=== PATIENT | female | born 1995 | race Caucasian/White ===

== ENCOUNTER → 2018-05-31 | Outpatient (CLI) | payer OTHER ==
--- NOTE | 2018-05-31 14:19 | US ---
EXAMINATION TYPE: Transabdominal DATE OF EXAM: 01/12/18 COMPARISON: NONE CLINICAL HISTORY: Z34.80 Encounter for supervision of other.... Confirm dates, 4, para 3 EXAM PERFORMED: Transabdominal (TA) EXAM MEASUREMENTS: GESTATIONAL AGE / DATING Physician Established: Not established yet Dates by LMP: (7 weeks/5 days) EDC: 01/12/2019 Dates by First Scan: This is 1st scan Dates by Current Scan for: ( 8 weeks/1 days) EDC: 01/09/2019 MATERNAL ANATOMY Uterus: 9.6 x 6.5 x 7.4cm, anteverted Right Ovary: 3.2 x 2.2 x 2.4cm Left Ovary: 2.9 x 1.5 x 2.2cm Post CDS / Adnexa: wnl Presence of free fluid: no Presence of corpus luteal cyst: right ovary: 1.7 x 1.4 x 1.2cm complex area, possible corpus luteum Presence of subchorionic bleed: no GESTATION / SURVEY CRL: 1.7cm (8 weeks/1 days) Yolk Sac (normal less than 6mm): 3.4mm Heart Rate: 175 bpm Rhythm: Normal IUP: Viable IUP Date of LMP: 04/07/2018 Single live intrauterine gestation is seen as gestational sac, yolk sac, and pole are identifie d. No free fluid is seen in pelvic cul-de-sac. Both ovaries are seen. Within right ovary there is 1.7 cm oval slightly lobulated solid and cystic le mila felt to reflect corpus luteal cyst. IMPRESSION: Single live intrauterine gestation is confirmed, mean crown-rump length is 1.7 cm corresponding to 8 week 1 day old fetus.
== END | disposition home or self-care (01) ==
LOC: RADUSWWP 13:30
PROVIDERS: ATTEND Obstetrics & Gynecology
DX: Z34.81 Encounter for supervision of other normal pregnancy, first trimester (principal)
CPT/HCPCS: 76801

== ENCOUNTER → 2018-08-12 | Outpatient (CLI) | payer OTHER ==
--- NOTE | 2018-08-12 15:39 | US ---
EXAMINATION TYPE: US OB anatomy transabd DATE OF EXAM: 08/12/2018 COMPARISON: NONE HISTORY: Z34.80 SUPERVISION OF OTHER NORMAL TECHNIQUE: Transabdominal (TA) EXAM MEASUREMENTS: GESTATIONAL AGE / DATING Physician Established: (18 weeks/1 days) EDC: 01/12/2019 Dates by LMP: (18 weeks/1 days) EDC: 01/12/2019 Dates by First Scan: (18 weeks/4 days) EDC: 01/09/2019 Dates by Current Scan for: (18 weeks/1 days) EDC: 01/12/2019 SURVEY IUP: Single PLACENTA: Anterior PREVIA: No previa CLARY: 11.9 cm Normal CERVICAL LENGTH (transabdominal: norm > 3.0cm): 4.2 cm BIOMETRY PRESENTATION: Vertex LIE: Longitudinal BPD: 3.9 cm 17 weeks / 6 days HC: 15.3 cm 18 weeks / 2 days AC: 13.0 cm 18 weeks / 4 days FL: 2.7 cm 18 weeks / 3 days ESTIMATED WEIGHT IN GRAMS: 238.87 grams ESTIMATED WEIGHT IN LBS/OZ: 0 lbs. 8 oz. WEIGHT PERCENTAGE BASED ON ESTABLISHED DATE: 35.9 % HC/AC: 1.18 Normal FL/AC: 21.15 HEART RATE: 170 bpm RHYTHM: Normal ANATOMY SEEN (within normal limits): * Lateral Vent (< 1 cm) 0.8 cm * Cisterna Magna (< 1.1 cm) 0.4 cm * Nuchal Fold (< 0.6 cm) 0.2 cm * Cerebellum (varies with age) 1.9 cm Choroid Plexus (bilateral) Midline Falx Cavus Septi Pellucidi Four Chamber Heart Outflow tracts: LVOT/RVOT Stomach Situs Nose / Lips not seen Diaphragm Kidneys (bilateral) Bladder Cord Insert Three Vessel Cord Longitudinal Spine Transverse Spine Arms (bilateral) Legs (bilateral) Viable IUP, measurements consistent with dates. IMPRESSION: Single viable intrauterine corresponding to ultrasound age of 18 weeks 1 day with estimated date of delivery 01/12/2019, limitations above.
== END ==
LOC: RADUSWWP 12:58
PROVIDERS: ATTEND Obstetrics & Gynecology
DX: Z34.80 Encounter for supervision of other normal pregnancy, unspecified trimester (principal); Z3A.18 18 weeks gestation of pregnancy
CPT/HCPCS: 76811

== ENCOUNTER 2018-10-05 19:52 | Emergency (ER) | payer OTHER ==
[2018-10-05] MEDS ORDERED: ACETAMINOPHEN TAB 325 MG TAB PO STA (21:42)
[2018-10-05 21:45] LABS: Appearance,Urine Clear (Clear); Bilirubin,Urine Negative (Negative); Blood,Urine Negative (Negative); Color,Urine Yellow; Glucose,Urine (UA) Negative (Negative); Ketones,Urine Negative (Negative); Leukocyte Esterase,Urine Small (Negative); Mucus,Urine Moderate /hpf; Nitrite,Urine Negative (Negative); PH, Urine 6.5 (5.0-8.0); Protein,Urine Negative (Negative); Specific Gravity,Urine 1.019 (1.001-1.035); Squamous Epithelial Cell,Urine 5 /hpf (0-4); Urobilinogen,Urine <2.0 mg/dL (<2.0)
--- NOTE | 2018-10-05 22:23 | ED ---
General Adult HPI - General Chief complaint: Upper Respiratory Infection Stated complaint: Congestion/coughing Source: patient, RN notes reviewed, old records reviewed Mode of arrival: ambulatory Limitations: no limitations - History of Present Illness Initial comments: 23-year-old female patient past medical history including 26 weeks gestation presents to ED with 3 days of mild nonproductive cough, rhinitis, sinus congestion. Patient also has complaint of 2 weeks of mild lumbar back pain without fall or injury. Patient denies other complaints. Patient denies vaginal pain, suprapubic pain, vaginal bleeding, abdominal pain. Patient denies chest pain, shortness of breath, hemoptysis. Systemic: Pt denies fatigue, myalgia, fever/chills, rash. Pt denies weakness, night sweats, weight loss. Neuro: Pt denies headache, visual disturbances, syncope or pre-syncope. HEENT: Pt denies ocular discharge or irritation, otalgia, pharyngitis or notable lymphadenopathy. Cardiopulmonary: Pt denies chest pain, SOB, heart palpitations, dyspnea on exertion. Abdominal/GI: Pt denies abdominal pain, n/v/d. : Pt denies dysuria, burning w/ urination, frequency/urgency. Denies new onset urinary or bowel incontinence. MSK: Pt denies myalgia, loss of strength or function in extremities. Neuro: Pt denies new onset weakness, paresthesias. - Related Data Previous Rx's Medication Instructions Recorded Acetaminophen Tab [Tylenol Tab] 500 mg PO Q6H #30 tablet 10/05/18 Albuterol Nebulized [Ventolin 2.5 mg INHALATION Q4H PRN 10 Days 10/05/18 Nebulized] nebu Allergies Allergy/AdvReac Type Severity Reaction Status Date / Time No Known Allergies Allergy Verified 10/05/18 20:08 Review of Systems ROS Statement: Those systems with pertinent positive or pertinent negative responses have been documented in the HPI. ROS Other: All systems not noted in ROS Statement are negative. Past Medical History Past Medical History: No Reported History History of Any Multi-Drug Resistant Organisms: None Reported Additional Past Surgical History / Comment(s): left ACL repair. eustachian tubes. Past Psychological History: No Psychological Hx Reported Smoking Status: Current every day smoker Past Alcohol Use History: None Reported Past Drug Use History: None Reported General Exam - General Exam Comments Initial Comments: Constitutional: NAD, AOX3, Pt has pleasant affect. HEENT: NC/AT, trachea midline, neck supple, no lymphadenopathy. Posterior pharynx non erythematous, without exudates. External ears appear normal, without discharge. Tympanic membrane pale ellis bilaterally, no effusion, bulging, perforation. Mucous membranes moist. Eyes PERRLA, EOM intact. There is no scleral icterus. No pallor noted. Cardiopulmonary: RRR, no murmurs, rubs or gallops, no JVD noted. Lungs CTAB in anterior and posterior blankenship. No peripheral edema. Abdominal exam: Abdomen soft and non-distended. Abdomen non-tender to palpation in all 4 quadrants. Bowel sounds active in LLQ. No hepatosplenomegaly. No ecchymosis Neuro: CN II-XII grossly intact. No nuchal rigidity. MSK: Patient has mild lumbar back pain with flexion movements. Patient states this is the pain that she is experiencing. Patient has no midline cervical, thoracic, lumbar back tenderness. Patient has no para cervical, thoracic and lumbar back tenderness. No posterior calf tenderness bilaterally, homans sign negative bilaterally. Posterior tibialis and radial pulse +2 bilaterally. Sensation intact in upper and lower extremities. Full active ROM in upper and lower extremities, 5/5 strength. Limitations: no limitations Course Vital Signs 10/05/18 10/05/18 10/05/18 20:06 21:45 23:14 Temperature 98.5 F 97.9 F Pulse Rate 107 H 72 90 Respiratory 20 18 Rate Blood Pressure 100/57 102/58 O2 Sat by Pulse 98 98 Oximetry Medical Decision Making - Medical Decision Making 23-year-old female patient past medical history including 26 weeks gestation presents to ED with 3 days of mild nonproductive cough, rhinitis, sinus congestion. Patient also has complaint of 2 weeks of mild lumbar back pain without fall or injury. Patient denies other complaints. Physical exam didn't display acute pathology. Offered patient chest x-ray, explained to patient small amount of radiation exposure to developing fetus. Patient states that she would like to decline chest x-ray and continue further watchful waiting. Discussed with patient that due to timeframe of symptoms, lack of physical exam findings, stable vital signs is likely that she was dealing with a viral upper respiratory infection. Patient to follow up with PCP and SENIOR QUALITY METHODS SPECIALIST for continued evaluation of symptoms as well as back pain. Patient verbalizes understanding and agreement with plan. Patient requested albuterol refill for child not in ED that has asthma, albuterol was refilled for patient. Patient requested refill of Tylenol for her back pain, Tylenol as refilled. Patient to return to ED if any new signs or symptoms develop or if condition worsens. Patient to continue supportive treatment at home. Pt will f/u with PCP and ob/ bark fitter in 1-2 days. Case discussed with Dr. Carreno. - Lab Data Lab Results 10/05/18 Range/Units 21:25 Urine Color Yellow Urine Appearance Clear (Clear) Urine pH 6.5 (5.0-8.0) Ur Specific [place] 1.019 (1.001-1.035) Urine Protein Negative (Negative) Urine Glucose (UA) Negative (Negative) Urine Ketones Negative (Negative) Urine Blood Negative (Negative) Urine Nitrite Negative (Negative) Urine Bilirubin Negative (Negative) Urine Urobilinogen <2.0 (<2.0) mg/dL Ur Leukocyte Esterase Small H (Negative) Urine WBC 1 (0-5) /hpf Ur Squamous Epith Cells 5 H (0-4) /hpf Urine Mucus Moderate H (None) /hpf Disposition Clinical Impression: Upper respiratory infection Disposition: HOME SELF-CARE Condition: Good Instructions: Upper Respiratory Infection (ED) Additional Instructions: Patient to adhere to previously discussed treatment plan and will take medication(s) as directed. Patient to follow up with PCP in 1-2 days. Patient to return to ED if symptoms do not improve. Prescriptions: Acetaminophen Tab [Tylenol Tab] 500 mg PO Q6H #30 tablet Albuterol Nebulized [Ventolin Nebulized] 2.5 mg INHALATION Q4H PRN 10 Days nebu PRN Reason: Cough Is patient prescribed a controlled substance at d/c from ED?: No Referrals: None,Stated [Primary Care Provider] - 1-2 days Time of Disposition: 22:52
[2018-10-05 23:15] VITALS: BP 102/58; PULSE 90; RESP 18; TEMP 97.9
== END 2018-10-05 23:05 | disposition home or self-care (01) ==
LOC: EC 19:52
DX: O99.512 Diseases of the respiratory system complicating pregnancy, second trimester (principal); J06.9 Acute upper respiratory infection, unspecified; O99.89 Other specified diseases and conditions complicating pregnancy, childbirth and the puerperium; M54.5 Low back pain; O99.332 Smoking (tobacco) complicating pregnancy, second trimester; F17.200 Nicotine dependence, unspecified, uncomplicated; Z3A.26 26 weeks gestation of pregnancy
CPT/HCPCS: 81001; 99284

== ENCOUNTER → 2018-12-01 | Outpatient (CLI) | payer OTHER ==
[2018-12-01 12:12] LABS: Glucose 3 Hour, Gest 106 mg/dL
== END ==
LOC: LABWHC1 08:01
PROVIDERS: ATTEND Obstetrics & Gynecology
DX: O99.810 Abnormal glucose complicating pregnancy (principal); Z3A.00 Weeks of gestation of pregnancy not specified
CPT/HCPCS: 36415; 82951; 82952

== ENCOUNTER 2018-12-24 19:07 | Outpatient (CLI) | payer OTHER ==
[2018-12-24 19:47] LABS: Glucose,Whole Blood 90 mg/dL (75-99)
[2018-12-24 20:41] VITALS: BP 117/68; PULSE 100; RESP 16; TEMP 97.5
--- NOTE | 2018-12-25 07:45 | P.MSEPDOC ---
Presenting Problems - Arrival Data Date of Arrival on Unit: 12/24/18 Time of Arrival on Unit: 19:07 Mode of Transport: Wheelchair - Complaint OB-Reason for Admission/Chief Complaint: Possible Onset of Labor Medical History - Information : 4 Para: 3 Term: 3 : 0 Abortions: Spontaneous or Elective: 0 Number of Living Children: 3 - Gestational Age Gestational Age by NICOLE (wks/days): 37 Weeks and 6 Days - History Complications: GDM, Smoker Review of Systems - Review of Systems Constitutional: No problems Breast: No problems ENT: No problems Cardiovascular: No problems Respiratory: No problems Gastrointestinal: No problems Genitourinary: No problems Musculoskeletal: No problems Neurological: No problems Skin: No problems Vital Signs - Temperature Temperature: 97.5 F Temperature Source: Temporal Artery Scan - Pulse Right Brachial Pulse Rate: 100 Pulse Assessment Method: Automatic Cuff - Respirations Respiratory Rate: 16 Oxygen Delivery Method: Room Air O2 Sat by Pulse Oximetry: 98 - Blood Pressure Right Arm Blood Pressure: 117/68 Blood Pressure Mean: 84 Blood Pressure Source: Automatic Cuff Medical Screen Scoring (Pre) - Cervical Exam Dilation: 1-3 cm = 1 Membranes: Intact - Uterine Contractions Frequency: > 5 minutes apart = 1 Duration: N/A Intensity: N/A - Maternal Vital Signs Maternal Temperature: N/A Maternal Blood Pressure: N/A Signs of Preeclampsia: N/A - Pain Assessment Pain Location and Character: Lower, Back, Abdomen Pain Scale Used: Numeric (1 - 10) Pain Intensity: 6 Pain Description: *Acute, Cramping Pain Frequency: Intermittent Pain Duration Units: Minutes Pain Behavior: Facial Grimacing, Vocalization Pain Aggravating Factors: Contractions - Assessment Baseline FHR: 130 Heart Rate - NICHD Category: Category I (Normal) = 0 NST: Reactive Position: N/A Station: N/A - Total Score Total Score (Pre): 2 - Level of Risk Level of Risk: Low (0-5) Physician Notification (Pre) - Physician Notified Physician Notified Date: 12/24/18 Physician Notified Time: 20:25 Physician/Practitioner Notifed:: Dr. Branham Spoke With: Dr. Branham New Order Received: Yes - Notification Comment Comment: Dr. Branham called and given report on pt in tr. Pt c/o. VS WNL. Vag exam of 250/-3 with no change after 1 hr. Reactive nst. Fht with baseline of 130 with few variables noted. Orders recieved to d/c pt to home. To instruct pt to follow up with her DRMynor Disposition - Disposition OB Disposition: Discharge to home Discharge Date: 12/24/18 Discharge Time: 20:35 I agree with the RN Medical Screening Exam: Yes Risk & Benefit of care provided described in d/c instruction: Yes Diagnosis: FALSE LABOR AT OR AFTER 37 COMPLETED WEEKS OF GESTATION (Patient presented to labor and delivery with complaints of contractions and rule out labor. Patient's care has been elsewhere complicated apparently by gestational diabetes. Patient's heart tones were category 1 and after serial exams she was found not to be in labor. Patient was strongly encouraged to follow up with her marine diesel mechanic who is been managing her care thus far and she was informed that that marine diesel mechanic did not have privileges at this hospital therefore would be in her best interest to present to that hospital had she felt that she was in labor, however she was always welcome here course.)
== END 2018-12-24 20:35 | disposition home or self-care (01) ==
LOC: FBPOP 19:07
PROVIDERS: ATTEND Obstetrics & Gynecology
DX: O47.1 False labor at or after 37 completed weeks of gestation (principal); Z3A.37 37 weeks gestation of pregnancy
CPT/HCPCS: 59025; G0463; 99213

== ENCOUNTER 2019-09-23 15:07 | Emergency (ER) | payer OTHER ==
[2019-09-23 15:14] VITALS: BP 102/59; PULSE 70; RESP 16; TEMP 98.4
--- NOTE | 2019-09-23 16:11 | ED ---
URI HPI - General Chief Complaint: Upper Respiratory Infection Stated Complaint: Cough Time Seen by Provider: 09/23/19 15:18 Source: patient Mode of arrival: ambulatory Limitations: no limitations - History of Present Illness Initial Comments: Patient is a 24-year-old female presenting to emergency Department with complaints of a cough and intermittent fevers for about a week. Patient states she was seen in the ER a week ago for same complaint and they told her it was most likely viral at that time. Patient states her symptoms have been getting worse. Patient also complaining of nasal discharge and drainage as well as a sore throat. Patient has tried [id number] remedies without relief. Patient states her daughters are also sick with same sort of symptoms. Patient denies chest pain, shortness of breath, nausea, vomiting, abdominal pain. Patient has no other complaints at this time. Upon arrival to the ER, her vital signs are stable. - Related Data Previous Rx's Medication Instructions Recorded Acetaminophen Tab [Tylenol Tab] 500 mg PO Q6H #30 tablet 10/05/18 Albuterol Nebulized [Ventolin 2.5 mg INHALATION Q4H PRN 10 Days 10/05/18 Nebulized] nebu Albuterol Nebulized [Ventolin 2.5 mg INHALATION Q4H PRN #25 nebu 09/23/19 Nebulized] Azithromycin [Zithromax Z-pack] 0 mg PO DIRECTED #1 pack 09/23/19 Allergies Allergy/AdvReac Type Severity Reaction Status Date / Time Penicillins Allergy Unknown Verified 09/23/19 15:12 Childhood Review of Systems ROS Statement: Those systems with pertinent positive or pertinent negative responses have been documented in the HPI. ROS Other: All systems not noted in ROS Statement are negative. Past Medical History Past Medical History: No Reported History History of Any Multi-Drug Resistant Organisms: None Reported Additional Past Surgical History / Comment(s): left ACL repair. eustachian tubes. Past Psychological History: No Psychological Hx Reported Smoking Status: Current every day smoker Past Alcohol Use History: None Reported Past Drug Use History: None Reported General Exam - General Exam Comments Initial Comments: GENERAL: Well-appearing, well-nourished and in no acute distress. HEAD: Atraumatic, normocephalic. EYES: Pupils equal round and reactive to light, extraocular movements intact, sclera anicteric, conjunctiva are normal. ENT: TMs normal, nares patent, oropharynx clear without exudates. Moist mucous membranes. NECK: Normal range of motion, supple without lymphadenopathy or JVD. LUNGS: Breath sounds clear to auscultation bilaterally and equal. No wheezes rales or rhonchi. HEART: Regular rate and rhythm without murmurs, rubs or gallops. ABDOMEN: Soft, nontender, normoactive bowel sounds. No guarding, no rebound. No masses appreciated. : Deferred EXTREMITIES: Normal range of motion, no pitting or edema. No clubbing or cyanosis. NEUROLOGICAL: Normal speech, normal gait. SKIN: Warm, Dry, normal turgor, no rashes or lesions noted. Limitations: no limitations Course Vital Signs 09/23/19 15:10 Temperature 98.4 F Pulse Rate 70 Respiratory 16 Rate Blood Pressure 102/59 O2 Sat by Pulse 95 Oximetry Medical Decision Making - Medical Decision Making She is a 24-year-old female presenting with cough and intermittent fevers times one week. Vital signs are stable upon arrival. Exam is unremarkable. Patient was overly adamant about getting an antibiotic because she was here a week ago for same complaint and she is getting worse. Patient will be given prescription for Z-Caesar for upper respiratory infection. Patient is agreement with this plan of care. Patient is stable for discharge at this time. Patient will follow-up with PCP as symptoms persist. Disposition Clinical Impression: Upper respiratory tract infection Disposition: HOME SELF-CARE Condition: Stable Instructions (If sedation given, give patient instructions): Upper Respiratory Infection (ED) Additional Instructions: Please return to the Emergency Department if symptoms worsen or any other concerns. Take anabolic as prescribed. Follow up with PCP if symptoms persist Prescriptions: Albuterol Nebulized [Ventolin Nebulized] 2.5 mg INHALATION Q4H PRN #25 nebu PRN Reason: difficulty in breathing Azithromycin [Zithromax Z-pack] 0 mg PO DIRECTED #1 pack Is patient prescribed a controlled substance at d/c from ED?: No Referrals: Venkat Nguyen MD [Primary Care Provider] - 1-2 days
== END 2019-09-23 16:38 | disposition home or self-care (01) ==
LOC: EC 15:07
DX: J06.9 Acute upper respiratory infection, unspecified (principal); F17.200 Nicotine dependence, unspecified, uncomplicated; Z88.0 Allergy status to penicillin
CPT/HCPCS: 99283

== ENCOUNTER → 2020-06-12 | Outpatient (CLI) | payer OTHER ==
--- NOTE | 2020-06-12 15:14 | US ---
EXAMINATION TYPE: Transabdominal DATE OF EXAM: 06/12/2020 2:32 PM COMPARISON: None. CLINICAL HISTORY: Z36 confirm dates. early ob. Positive beta-hCG test. EXAM PERFORMED: OBTA EXAM MEASUREMENTS: GESTATIONAL AGE / DATING Physician Established: Not yet established Dates by LMP: (11 weeks/1 days) EDC: 01/01/2021 Dates by First Scan: No previous this is first scan Dates by Current Scan for: (11 weeks/1 days) EDC: 12/31/2020 MATERNAL ANATOMY Uterus: 11.4 x 7.9 x 9.0cm Right Ovary: not seen Left Ovary: not seen Post CDS / Adnexa: wnl Presence of free fluid: no Presence of corpus luteal cyst: not seen Presence of subchorionic bleed: no GESTATION / SURVEY CRL: 4.0 (11 weeks/0 days) MSD: wnl Yolk Sac (normal less than 6mm): not seen Heart Rate: 167 bpm Rhythm: Normal IUP: Viable IUP Date of LMP: 03/26/2020 Single live intrauterine gestation is confirmed as gestational sac and pole are seen. Yolk sac is not clearly identified. No free fluid in pelvic cul-de-sac. Neither ovary is identified. No suspicious adnexal masses are noted. IMPRESSION: Confirmation of single live intrauterine gestation, mean crown-rump length is 4.0 cm michael esponding to 11 weeks 0 day old fetus.
== END | disposition home or self-care (01) ==
LOC: RADUSWWP 14:12
PROVIDERS: ATTEND Obstetrics & Gynecology
DX: Z36.9 Encounter for antenatal screening, unspecified (principal); Z3A.11 11 weeks gestation of pregnancy
CPT/HCPCS: 76801

== ENCOUNTER 2020-08-29 11:26 | Emergency (ER) | payer OTHER ==
[2020-08-29 11:31] VITALS: PULSE 72; RESP 18; TEMP 98.4
--- NOTE | 2020-08-29 12:25 | ED ---
URI HPI - General Chief Complaint: Upper Respiratory Infection Stated Complaint: cough/congestion/headache Time Seen by Provider: 08/29/20 11:32 Source: patient Mode of arrival: ambulatory Limitations: no limitations - History of Present Illness Initial Comments: 25-year-old female who is currently 23 weeks presenting to the ER for cough congestion on and off headaches. Mother states there are 2 daughters are sick she states she's been exposed to people that have been ill with same symptoms. She denies any vomiting diarrhea vaginal bleeding of bowel pain neck stiffness. Denies chest pain or SOB. She states she just wanted comfort Covid testing she has no additional complaints upon arrival she appears well nontoxic in no acute distress - Related Data Previous Rx's Medication Instructions Recorded Acetaminophen Tab [Tylenol Tab] 500 mg PO Q6H #30 tablet 10/05/18 Albuterol Nebulized [Ventolin 2.5 mg INHALATION Q4H PRN 10 Days 10/05/18 Nebulized] nebu Albuterol Nebulized [Ventolin 2.5 mg INHALATION Q4H PRN #25 nebu 09/23/19 Nebulized] Azithromycin [Zithromax Z-pack (6 0 mg PO DIRECTED #1 pack 09/23/19 tabs)] Allergies Allergy/AdvReac Type Severity Reaction Status Date / Time Penicillins Allergy Unknown Verified 08/29/20 11:28 Childhood Review of Systems ROS Statement: Those systems with pertinent positive or pertinent negative responses have been documented in the HPI. ROS Other: All systems not noted in ROS Statement are negative. Past Medical History Past Medical History: No Reported History History of Any Multi-Drug Resistant Organisms: None Reported Additional Past Surgical History / Comment(s): left ACL repair. eustachian tubes. Past Psychological History: No Psychological Hx Reported Smoking Status: Current every day smoker Past Alcohol Use History: None Reported Past Drug Use History: None Reported General Exam - General Exam Comments Initial Comments: General: The patient is awake and alert, in no distress, and does not appear acutely ill. Eye: +3 mm pupils are equal, round and reactive to light, extra-ocular movements are intact. No nystagmus. There is normal conjunctiva bilaterally. No signs of icterus. No photophobia Ears, nose, mouth and throat: There are moist mucous membranes and no oral lesions. Oropharynx was not erythematous there is no tonsillar enlargement exudates or lesions. Uvula midline. Tympanic membranes are not erythematous or is no effusions bulging or retraction. No tenderness to palpation of the mastoid. No anterior cervical lymphadenopathy. Rhinorrhea, clear and bilateral nares. No tripoding, no drooling. Neck: The neck is supple, there is no tenderness or JVD. No nuchal rigidity negative Brudzinski and Kernig Cardiovascular: There is a regular rate and rhythm. No murmur, rub or gallop is appreciated. Respiratory: Lungs are clear to auscultation, respirations are non-labored, breath sounds are equal. No wheezes, stridor, rales, or rhonchi. No retractions or abdominal breathing. Gastrointestinal: Soft, non-distended, non-tender abdomen without masses or organomegaly noted. There is no rebound or guarding present. Bowel sounds are unremarkable. Musculoskeletal: Normal ROM, no tenderness. Strength 5/5. Sensation intact. Radial pulses equal bilaterally 2+. Neurological: A&O x 3. CN II-XII intact, There are no obvious motor or sensory deficits. Coordination appears grossly intact. Speech appears normal, no muffling. Skin: Skin is warm and dry and no rashes or lesions are noted. No extremity edema Psychiatric: Cooperative Limitations: no limitations Course Vital Signs 08/29/20 08/29/20 08/29/20 11:28 13:00 13:05 Temperature 98.4 F 98.4 F Pulse Rate 72 72 Respiratory 18 18 18 Rate O2 Sat by Pulse 97 97 Oximetry Medical Decision Making - Medical Decision Making Refused CXR. Lungs are clear. Covid (-). Obvious URI symptoms. Lydia CP or SOB. patient appeares well nontoxic. Recommend outpatient pcp and OB f/u. Return parameters discussed. - Lab Data Lab Results 08/29/20 Range/Units 11:49 Coronavirus (PCR) Not Detected (Not Detectd) Disposition Clinical Impression: URI (upper respiratory infection) Disposition: HOME SELF-CARE Condition: Good Instructions (If sedation given, give patient instructions): Upper Respiratory Infection (ED) Additional Instructions: Please use medication as discussed. Please follow-up with family doctor in the next 2 days.return for any chest pain shortness of breath, please do not take any medications aside from Tylenol unless approved from your COMMUNICATIONS REPRESENTATIVE Please return to emergency room if the symptoms increase or worsen or for any other concerns. Is patient prescribed a controlled substance at d/c from ED?: No Referrals: None,Stated [Primary Care Provider] - 1-2 days Time of Disposition: 12:25
== END 2020-08-29 13:06 | disposition home or self-care (01) ==
LOC: EC 11:26
DX: O99.512 Diseases of the respiratory system complicating pregnancy, second trimester (principal); J06.9 Acute upper respiratory infection, unspecified; O99.332 Smoking (tobacco) complicating pregnancy, second trimester; F17.200 Nicotine dependence, unspecified, uncomplicated; Z88.0 Allergy status to penicillin; Z20.828 Contact with and (suspected) exposure to other viral communicable diseases; Z3A.23 23 weeks gestation of pregnancy
CPT/HCPCS: 87635; 99283

== ENCOUNTER 2020-09-15 22:57 | Emergency (ER) | payer OTHER ==
[2020-09-15 23:05] VITALS: TEMP 98.9
--- NOTE | 2020-09-15 23:09 | ED ---
URI HPI - General Chief Complaint: Upper Respiratory Infection Stated Complaint: Congestion, nausea Time Seen by Provider: 09/15/20 23:06 Source: patient, RN notes reviewed, old records reviewed Mode of arrival: ambulatory Limitations: no limitations - History of Present Illness Initial Comments: This is a 25-year-old female she presents today for evaluation regards to cough and congestion history of asthma history of asthmatic bronchitis and persistent bronchitis. She has had prior testing for coronavirus with exposure being family members. Patient believes she is having fevers denying any other issues. He. MD Complaint: fever, cough, nasal congestion -: days(s) Severity: moderate Severity scale (1-10): 4 Consistency: constant Improves With: nothing Worsens With: nothing Associated Symptoms: fever, chills, rhinorrhea, nasal congestion, sore throat, cough Treatments Prior to Arrival: none - Related Data Previous Rx's Medication Instructions Recorded Acetaminophen Tab [Tylenol Tab] 500 mg PO Q6H #30 tablet 10/05/18 Albuterol Nebulized [Ventolin 2.5 mg INHALATION Q4H PRN 10 Days 10/05/18 Nebulized] nebu Albuterol Nebulized [Ventolin 2.5 mg INHALATION Q4H PRN #25 nebu 09/23/19 Nebulized] Azithromycin [Zithromax Z-pack (6 0 mg PO DIRECTED #1 pack 09/23/19 tabs)] Allergies Allergy/AdvReac Type Severity Reaction Status Date / Time Penicillins Allergy Unknown Verified 09/15/20 23:05 Childhood Review of Systems ROS Statement: Those systems with pertinent positive or pertinent negative responses have been documented in the HPI. ROS Other: All systems not noted in ROS Statement are negative. Past Medical History Past Medical History: No Reported History History of Any Multi-Drug Resistant Organisms: None Reported Additional Past Surgical History / Comment(s): left ACL repair. eustachian tubes. Past Psychological History: No Psychological Hx Reported Smoking Status: Current every day smoker Past Alcohol Use History: None Reported Past Drug Use History: None Reported General Exam Limitations: no limitations General appearance: alert, in no apparent distress, anxious Head exam: Present: atraumatic, normocephalic, normal inspection Eye exam: Present: normal appearance, PERRL, EOMI. Absent: scleral icterus, conjunctival injection, periorbital swelling ENT exam: Present: normal exam, mucous membranes moist Neck exam: Present: normal inspection. Absent: tenderness, meningismus, lymphadenopathy Respiratory exam: Present: wheezes. Absent: respiratory distress, rales, rhonchi, stridor Cardiovascular Exam: Present: regular rate, normal rhythm, normal heart sounds. Absent: systolic murmur, diastolic murmur, rubs, gallop, clicks GI/Abdominal exam: Present: soft, normal bowel sounds. Absent: distended, tenderness, guarding, rebound, rigid Extremities exam: Present: normal inspection, full ROM, normal capillary refill. Absent: tenderness, pedal edema, joint swelling, calf tenderness Back exam: Present: normal inspection Neurological exam: Present: alert, oriented X3, CN II-XII intact Psychiatric exam: Present: normal affect, normal mood Skin exam: Present: warm, dry, intact, normal color. Absent: rash Course Vital Signs 09/15/20 23:02 Temperature 98.9 F Pulse Rate 92 Respiratory 20 Rate Blood Pressure 104/59 O2 Sat by Pulse 99 Oximetry - Reevaluation(s) Reevaluation #1: 09/16/20 00:38 Medical records reviewed Reevaluation #2: 09/16/20 00:38 A she remains in no distress Reevaluation #3: 09/16/20 00:38 She is informed of results and she can be discharged Medical Decision Making - Medical Decision Making 25 female DF for evaluation patient does have asthmatic bronchitis she believes she may or may not have covert she was negative here which she has have exposure. Patient is in no distress, chest x-ray and rapid Kovic test is negati ve. Patient be discharged home to continue to monitor for symptom - Lab Data Lab Results 09/15/20 09/15/20 09/15/20 Range/Units 23:00 23:00 23:00 Urine Color Yellow Urine Appearance Clear (Clear) Urine pH 6.5 (5.0-8.0) Ur Specific Rydal 1.023 (1.001-1.035) Urine Protein Trace H (Negative) Urine Glucose (UA) Negative (Negative) Urine Ketones Negative (Negative) Urine Blood Negative (Negative) Urine Nitrite Negative (Negative) Urine Bilirubin Negative (Negative) Urine Urobilinogen <2.0 (<2.0) mg/dL Ur Leukocyte Esterase Trace H (Negative) Urine RBC 2 (0-5) /hpf Urine WBC 3 (0-5) /hpf Ur Squamous Epith Cells 7 H (0-4) /hpf Urine Mucus Many H (None) /hpf Urine HCG, Qual Detected (Not Detectd) Coronavirus (PCR) Not Detected (Not Detectd) - Radiology Data Radiology results: report reviewed (Chest x-rays negative for acute disease), image reviewed Disposition Clinical Impression: URI (upper respiratory infection), Asthmatic bronchitis Disposition: HOME SELF-CARE Condition: Good Instructions (If sedation given, give patient instructions): Upper Respiratory Infection (ED) Is patient prescribed a controlled substance at d/c from ED?: No Referrals: None,Stated [Primary Care Provider] - 1-2 days
[2020-09-15] MEDS ORDERED: IBUPROFEN 400 MG TAB PO STA (23:25)
[2020-09-15] MEDS ORDERED: ACETAMINOPHEN TAB 325 MG TAB PO STA (23:25)
--- NOTE | 2020-09-15 23:51 | XR ---
EXAMINATION TYPE: XR chest 2V DATE OF EXAM: 09/15/2020 COMPARISON: NONE HISTORY: Cough TECHNIQUE: 2 views FINDINGS: Heart and mediastinum are normal. Lungs are clear. Diaphragm is normal. Bony thorax appears normal. IMPRESSION: Normal chest.
[2020-09-15 23:52] LABS: Appearance,Urine Clear (Clear); Bilirubin,Urine Negative (Negative); Blood,Urine Negative (Negative); Color,Urine Yellow; Glucose,Urine (UA) Negative (Negative); Ketones,Urine Negative (Negative); Leukocyte Esterase,Urine Trace (Negative); Mucus,Urine Many /hpf; Nitrite,Urine Negative (Negative); PH, Urine 6.5 (5.0-8.0); Protein,Urine Trace (Negative); RBC,Urine 2 /hpf (0-5); Specific Gravity,Urine 1.023 (1.001-1.035); Squamous Epithelial Cell,Urine 7 /hpf (0-4); Urobilinogen,Urine <2.0 mg/dL (<2.0); WBC,Urine 3 /hpf (0-5)
[2020-09-16] MEDS ORDERED: dexAMETHasone 4 MG TAB PO STA (00:37)
[2020-09-16 01:52] VITALS: BP 95/63; PULSE 84; RESP 20
== END 2020-09-16 01:53 | disposition home or self-care (01) ==
LOC: EC 22:57
DX: J06.9 Acute upper respiratory infection, unspecified (principal); J45.909 Unspecified asthma, uncomplicated; F17.200 Nicotine dependence, unspecified, uncomplicated; Z20.828 Contact with and (suspected) exposure to other viral communicable diseases; Z88.0 Allergy status to penicillin
CPT/HCPCS: 81001; 81025; 87635; 71046; 99284; J8540

== ENCOUNTER → 2020-12-07 | Outpatient (CLI) | payer OTHER ==
--- NOTE | 2020-12-09 13:57 | US ---
EXAMINATION TYPE: US OB BPP wo non-stress DATE OF EXAM: 12/07/2020 COMPARISON: NONE CLINICAL HISTORY: O36.63X0 Large for dates. Large for dates. EXAM PERFORMED: Transabdominal (TA) BPP PARAMETERS: PRESENTATION: Vertex LIE: Longitudinal?? HEART RATE: 155 bpm RHYTHM: Normal CLARY: 13.30 cm DIAPHRAGM IMAGED: YES BPP SCORIN. Breathin (1 episode of breathing of 30 second duration in 30 minutes of scanning time) 2. Movement: 2 (at least 3 discrete body movements in 30 minutes) 3. Tone: 2 (1 episode of active flexion/extension of limb) 4. CLARY: 2 (CLARY index > 5cm) TOTAL SCORE: 8 / 8 Impression: As above. Normal score biophysical profile during real-time scanning.
--- NOTE | 2020-12-09 14:00 | US ---
EXAMINATION TYPE: US OB >= 14 wk fetus DATE OF EXAM: 12/07/2020 COMPARISON: Prior first trimester ultrasound June 12, 2020 CLINICAL HISTORY: O36.63X0 Large for datesFetal growth Patient being induced December 17. Patients 5th baby mutiple small babies between 5 and 6 pounds. TECHNIQUE: Transabdominal (TA) GESTATIONAL AGE / DATING Physician Established: (36 weeks/4 days) EDC: 12/31/2020 Dates by LMP: (36 weeks/4 days) EDC: 12/31/2020 Dates by First Scan: No previous this is first scan Dates by Current Scan: (33 weeks/0 days) EDC: 01/25/2021 SURVEY IUP: Single PLACENTA: Anterior PREVIA: No Previa CLARY: 13.30 cm Normal CERVICAL LENGTH (transabdominal: norm > 3.0cm): 4.0 cm BIOMETRY PRESENTATION: Vertex LIE: Longitudinal BPD: 8.5 cm 34 weeks / 2 days HC: 30.6 cm 34 weeks / 1 days AC: 29.0 cm 33 weeks / 1 days FL: 5.7 cm 30 weeks / 0 days ESTIMATED WEIGHT IN GRAMS: 1946 grams ESTIMATED WEIGHT IN LBS/OZ: 4 lbs. 5 oz. WEIGHT PERCENTAGE BASED ON ESTABLISHED DATES: 2% HC/AC: 1.06cm Normal FL/AC: 20% Normal HEART RATE: 156 bpm RHYTHM: Normal Single live intrauterine gestation is redemonstrated. Normal cephalad presentation currently. No cerv ical thinning noted currently. biometry measurements are concordant and somewhat small in size for expected gestational age based on prior ultrasound and last known menstrual period. No placenta previa. Calculated amniotic fluid index is thought within normal limits IMPRESSION: As above.
== END | disposition home or self-care (01) ==
LOC: RADUSWWP 15:39
PROVIDERS: ATTEND Obstetrics & Gynecology
DX: O36.63X0 Maternal care for excessive fetal growth, third trimester, not applicable or unspecified (principal); Z3A.34 34 weeks gestation of pregnancy
CPT/HCPCS: 76805; 76819

== ENCOUNTER 2020-12-15 | Outpatient (CLI) | payer OTHER ==
--- NOTE | 2020-12-16 07:29 | P.MSEPDOC ---
Presenting Problems - Arrival Data Date of Arrival on Unit: 12/15/20 Time of Arrival on Unit: 09:13 Mode of Transport: Wheelchair - Complaint OB-Reason for Admission/Chief Complaint: Possible Onset of Labor, Rule Out SROM Comment: Pt states that she thinks her water broke around 0730 this morning along with contractions since last evening Medical History - Information : 5 Para: 4 Term: 4 : 0 Abortions: Spontaneous or Elective: 0 Number of Living Children: 4 - Gestational Age Gestational Age by NICOLE (wks/days): 37 Weeks and 5 Days - History Complications: Smoker Review of Systems - Review of Systems Constitutional: No problems Breast: No problems ENT: No problems Cardiovascular: No problems Respiratory: No problems Gastrointestinal: No problems Genitourinary: No problems Musculoskeletal: No problems Neurological: No problems Skin: No problems Vital Signs - Temperature Temperature: 97.5 F Temperature Source: Temporal Artery Scan - Pulse Pulse Oximetery Pulse Rate: 100 Pulse Assessment Method: Pulse Oximetry - Respirations Respiratory Rate: 18 Oxygen Delivery Method: Room Air O2 Sat by Pulse Oximetry: 99 - Blood Pressure Right Arm Blood Pressure: 116/75 Blood Pressure Mean: 88 Blood Pressure Source: Automatic Cuff Medical Screen Scoring (Pre) - Cervical Exam Dilation: 1-3 cm = 1 Membranes: Intact - Uterine Contractions Frequency: N/A Duration: N/A Intensity: N/A - Maternal Vital Signs Maternal Temperature: N/A Maternal Blood Pressure: N/A Signs of Preeclampsia: N/A Maternal Respirations: N/A - Maternal Trauma Maternal Trauma: N/A - Assessment - Baby A Baseline FHR: 140 Heart Rate - NICHD Category: Category I (Normal) = 0 NST: Reactive Position: N/A Station: N/A - Total Score - Baby A Total Score - Baby A: 1 - Total Score - Baby B Total Score - Baby B: 1 - Total Score - Baby C Total Score - Baby C: 1 - Level of Risk - Baby A Level of Risk - Baby A: Low (0-5) - Level of Risk - Baby B Level of Risk - Baby B: Low (0-5) - Level of Risk - Baby C Level of Risk - Baby C: Low (0-5) Physician Notification (Pre) - Physician Notified Physician Notified Date: 12/15/20 Physician Notified Time: 09:51 New Order Received: Yes Disposition - Disposition OB Disposition: Discharge to home Discharge Date: 12/15/20 Discharge Time: 09:55 I agree with the RN Medical Screening Exam: Yes Case reviewed; plan agreed upon as documented in EMR&OBIX.: Yes Diagnosis: FALSE LABOR AT OR AFTER 37 COMPLETED WEEKS OF GESTATION
== END 2020-12-15 09:55 | disposition home or self-care (01) ==
CPT/HCPCS: 59025; 84112; G0463; 99213

== ENCOUNTER 2020-12-17 06:15 | Inpatient (IN) | payer OTHER ==
[2020-12-17] MEDS ORDERED: CARBOPROST TROMETHAMINE 250 MCG/ML 1 ML AMP IM PRN (08:49)
[2020-12-17] MEDS ORDERED: TERBUTALINE 1 MG/ML VIAL SQ PRN (08:49)
[2020-12-17] MEDS ORDERED: OXYTOCIN 10 UNIT/ML 1 ML VIAL IM PRN (08:49)
[2020-12-17] MEDS ORDERED: LIDOCAINE 0.5% (PF) 5 MG/ML (50 ML SDV) SQ PRN (08:49)
[2020-12-17] MEDS ORDERED: METHYLERGONOVINE 0.2 MG/ML 1 ML AMP IM PRN (08:49)
[2020-12-17] MEDS: LACTATED RINGERS 1,000 ML IV SCH ×2 (09:19→13:35)
[2020-12-17 09:27] LABS: Basophils % (A) 0 %; Eosinophils # (A) 0.1 k/uL (0-0.7); Eosinophils % (A) 1 %; HCT 32.6 % (34.0-46.0); Lymphocytes # (A) 1.4 k/uL (1.0-4.8); Lymphocytes % (A) 15 %; MCH 31.6 pg (25.0-35.0); MCHC 33.7 g/dL (31.0-37.0); MCV 93.9 fL (80.0-100.0); Mean Platelet Volume 8.4; Monocytes # (A) 0.3 k/uL (0-1.0); Monocytes % (A) 4 %; Neutrophils # (A) 7.4 k/uL (1.3-7.7); Neutrophils % (A) 80 %; Platelet Count 193 k/uL (150-450); RBC 3.47 m/uL (3.80-5.40); RDW 13.7 % (11.5-15.5); WBC 9.3 k/uL (3.8-10.6)
[2020-12-17] MEDS ORDERED: OXYTOCIN 30 UNITS/500 ML NS 30 UNIT in SALINE 1 500ML.BAG IV SCH (09:30)
[2020-12-17] MEDS ORDERED: BUTORPHANOL 1 MG/ML 1 ML VIAL IV PRN (12:59)
[2020-12-17] MEDS ORDERED: ROPIVACAINE 100 MG, fentaNYL (PF) 200 MCG in SODIUM CHLORIDE 0.9% 76 ML EPIDURAL ONE (13:35)
[2020-12-17] MEDS ORDERED: LANOLIN CREAM 5 GM TUBE TOPICAL PRN (15:09)
[2020-12-17] MEDS ORDERED: ACETAMINOPHEN TAB 325 MG TAB PO PRN (15:09)
[2020-12-17] MEDS ORDERED: SIMETHICONE 80 MG CHEWABLE PO PRN (15:09)
[2020-12-17] MEDS ORDERED: diphenhydrAMINE 50 MG CAP PO PRN (15:09)
[2020-12-17] MEDS ORDERED: HYDROCORTISONE 2.5% RECTAL CREAM 30 GM TUBE RECTAL PRN (15:09)
[2020-12-17] MEDS ORDERED: diphenhydrAMINE 25 MG CAP PO PRN (15:09)
[2020-12-17] MEDS ORDERED: ZOLPIDEM 5 MG TAB PO PRN (15:09)
[2020-12-17] MEDS ORDERED: BENZOCAINE/MENTHOL SPRAY 1 GM/SPRAY AEROSOL TOPICAL PRN (15:09)
[2020-12-17] MEDS ORDERED: diphenhydrAMINE 50 MG/ML 1 ML VIAL IVP PRN ×2 (15:09)
--- NOTE | 2020-12-17 16:06 | P.HPOB ---
History of Present Illness H&P Date: 12/17/20 Chief Complaint: Into at term: IUGR Patient is a 25-year-old at 38 weeks gestation with a baby in the less than 10th percentile. Plan induction of labor for same. course has been, complicated by tobacco abuse. She is had small babies with her other pregnancies but with this baby in well under the 10th percentile decision to move forward with induction at 38 weeks has been made. Risks and benefits were reviewed with the patient in detail and all questions were answered for her prior to proceeding. Pertinent labs O+ blood type Rh was negative, rubella is immune, hepatitis B surface antigen/RPR and HIV are all negative her 1 tracing is noted. She is dilated to 2 cm 60% effaced and -2 station. Clear fluid is noted that artificial rupture membranes Past Medical History Past Medical History: No Reported History History of Any Multi-Drug Resistant Organisms: None Reported Additional Past Surgical History / Comment(s): left ACL repair. eustachian tubes. Past Anesthesia/Blood Transfusion Reactions: No Reported Reaction Past Psychological History: No Psychological Hx Reported Smoking Status: Current every day smoker Past Alcohol Use History: None Reported Past Drug Use History: None Reported - Past Family History Father Family Medical History: No Reported History Medications and Allergies Home Medications Medication Instructions Recorded Confirmed Type No Known Home Medications 12/15/20 12/17/20 History Allergies Allergy/AdvReac Type Severity Reaction Status Date / Time Penicillins Allergy Unknown Verified 12/17/20 08:45 Childhood Exam Osteopathic Statement: *. No significant issues noted on an osteopathic structural exam other than those noted in the History and Physical/Consult. Vital Signs Temp Pulse Resp BP Pulse Ox 12/17/20 15:38 97.7 F 71 16 106/62 100 12/17/20 15:08 97.2 F L 65 16 102/59 100 12/17/20 14:51 98.0 F 77 16 131/61 99 12/17/20 14:38 72 17 112/59 100 12/17/20 14:23 71 17 107/53 100 12/17/20 14:08 98.0 F 78 18 100 12/17/20 09:02 97.5 F L 83 14 111/67 100 Intake and Output 12/17/20 12/17/20 12/17/20 06:59 14:59 22:59 Intake Total 185.583 Balance 185.583 Intake: Intake, IV Titration 185.583 Amount Oxytocin 30 Units/500 ml 185.583 Ns 30 unit In Saline 1 500ml.bag @ Per Protocol IV .Q0M [facility] Rx#:[id number] Other: Weight 51.71 kg - OBG Physical Exam Breast: both: normal (no masses) Abdomen: bowel sounds normal, no diffuse tenderness, no bruit present, no guarding noted, no hepatomegaly, no splenomegaly, no mass Vulva: both: normal Vagina: normal moisture, no discharge Cervix: no lesion, no discharge Uterus: normal size, normal contour Adnexa: both: normal Anus/Rectum: normal perianal skin, no rectal mass, no hemorrhoids, heme negative Results Result Diagrams: 12/17/20 09:12 Abnormal Lab Results - Last 24 Hours (Table) 12/17/20 Range/Units 09:12 RBC 3.47 L (3.80-5.40) m/uL Hgb 11.0 L (11.4-16.0) gm/dL Hct 32.6 L (34.0-46.0) %
--- NOTE | 2020-12-17 16:07 | P.PROBDLV ---
Vaginal Delivery Note - . Vaginal Delivery Note: She progressed complete and pushing. She made relatively slow change until approximately noon and that precipitously got to complete in less than an hour and delivered a viable female over an intact perineum. Following delivery of the head anterior posterior shoulders were easily delivered followed by the remainder the baby. Baby was then placed on mother's abdomen where the umbilical cord was clamped cut usual fashion an nursery personnel was present to assume care. The umbilical cord was allowed to pulsate for approximately 30 seconds prior to clamping and cutting. scores were 8 and 9 at one and 5 minutes respectively and the weight was 5 lbs. 0 oz. Both mother and baby are stable following delivery.
[2020-12-17] MEDS: IBUPROFEN 600 MG TAB PO SCH ×2 (17:34→23:57)
[2020-12-17] MEDS: SENNOSIDES-DOCUSATE SODIUM 1 EACH TAB PO SCH (23:57)
[2020-12-18] MEDS: IBUPROFEN 600 MG TAB PO SCH ×2 (00:10→12:55)
--- NOTE | 2020-12-18 07:50 | P.DS ---
Providers Date of admission: 12/17/20 08:36 Expected date of discharge: 12/18/20 Attending physician: Clayton Townsend Primary care physician: Clayton Townsend [facility] Course: Patient is doing very well day 1. She is ambulating, voiding and she is tolerating her diet. She voices no complaints. Vital signs are stable and afebrile. Heart regular, lungs clear, extremities are without pain. Abdomen is soft, uterus is firm and lochia is reported light. Assessment day 1. Plan discharged home follow up in 6 weeks. Discharge instructions are thoroughly reviewed and all other questions are answered for her prior to her discharge. Patient Condition at Discharge: Good Plan - Discharge Summary New Discharge Prescriptions: No Action No Known Home Medications Discharge Medication List No Known Home Medications 12/15/20 [History]
[2020-12-18 07:51] VITALS: BP 99/62; PULSE 60; RESP 18; TEMP 98
[2020-12-18 08:21] LABS: Basophils % (A) 0 %; Eosinophils # (A) 0.1 k/uL (0-0.7); Eosinophils % (A) 1 %; HCT 36.1 % (34.0-46.0); Lymphocytes # (A) 1.8 k/uL (1.0-4.8); Lymphocytes % (A) 19 %; MCH 32.3 pg (25.0-35.0); MCHC 33.3 g/dL (31.0-37.0); MCV 96.9 fL (80.0-100.0); Monocytes # (A) 0.4 k/uL (0-1.0); Monocytes % (A) 4 %; Neutrophils % (A) 74 %; Platelet Count 173 k/uL (150-450); RBC 3.73 m/uL (3.80-5.40); RDW 13.2 % (11.5-15.5); WBC 9.4 k/uL (3.8-10.6)
[2020-12-18] MEDS: SENNOSIDES-DOCUSATE SODIUM 1 EACH TAB PO SCH (12:55)
== END 2020-12-18 15:28 | disposition home or self-care (01) | DRG 807 ==
LOC: 4FBP 08:36
PROVIDERS: ADMIT Obstetrics & Gynecology; ATTEND Obstetrics & Gynecology
PROC: 3E033VJ Introduction of Other Hormone into Peripheral Vein, Percutaneous Approach (ICD-10-PCS; principal; 2020-12-17)
PROC: 00HU33Z Insertion of Infusion Device into Spinal Canal, Percutaneous Approach (ICD-10-PCS; principal; 2020-12-17)
PROC: 10E0XZZ Delivery of Products of Conception, External Approach (ICD-10-PCS; principal; 2020-12-17)
PROC: 3E0R3BZ Introduction of Anesthetic Agent into Spinal Canal, Percutaneous Approach (ICD-10-PCS; principal; 2020-12-17)
PROC: 10907ZC Drainage of Amniotic Fluid, Therapeutic from Products of Conception, Via Natural or Artificial Opening (ICD-10-PCS; principal; 2020-12-17)
DX: O36.5930 Maternal care for other known or suspected poor fetal growth, third trimester, not applicable or unspecified (principal); Z37.0 Single live birth; Z3A.38 38 weeks gestation of pregnancy; O99.334 Smoking (tobacco) complicating childbirth; F17.200 Nicotine dependence, unspecified, uncomplicated; Z88.0 Allergy status to penicillin
CPT/HCPCS: 85025; 86850; 86900; 86901; 88307

== ENCOUNTER 2021-02-28 21:34 | Emergency (ER) | payer OTHER ==
[2021-02-28 22:31] VITALS: BP 115/79; PULSE 91; RESP 18
--- NOTE | 2021-02-28 23:42 | XR ---
EXAMINATION TYPE: XR chest 1V portable DATE OF EXAM: 02/28/2021 COMPARISON: 09/15/2020 HISTORY: Cough TECHNIQUE: FINDINGS: Heart and mediastinum are normal. Lungs are clear. Diaphragm is normal. Bony thorax is inta ct. IMPRESSION: Normal chest. Inspiration decreased compared to old exam.
--- NOTE | 2021-02-28 23:59 | ED ---
URI HPI - General Chief Complaint: Upper Respiratory Infection Stated Complaint: cough,bodyaches Time Seen by Provider: 02/28/21 23:08 Source: patient Mode of arrival: ambulatory Limitations: no limitations - Related Data Home Medications Medication Instructions Recorded Confirmed No Known Home Medications 12/15/20 12/17/20 Allergies Allergy/AdvReac Type Severity Reaction Status Date / Time No Known Allergies Allergy Verified 02/28/21 22:28 Review of Systems ROS Statement: Those systems with pertinent positive or pertinent negative responses have been documented in the HPI. ROS Other: All systems not noted in ROS Statement are negative. Past Medical History Past Medical History: No Reported History History of Any Multi-Drug Resistant Organisms: None Reported Past Surgical History: Ear Surgery, Joint Replacement Additional Past Surgical History / Comment(s): left ACL repair. eustachian tubes. Past Anesthesia/Blood Transfusion Reactions: No Reported Reaction Past Psychological History: Anxiety Smoking Status: Current every day smoker Past Alcohol Use History: Occasional Past Drug Use History: None Reported - Past Family History Father Family Medical History: No Reported History General Exam Limitations: no limitations Course Vital Signs 02/28/21 02/28/21 22:28 23:30 Temperature 98.2 F Pulse Rate 91 Respiratory 18 18 Rate Blood Pressure 115/79 O2 Sat by Pulse 98 Oximetry Medical Decision Making - Lab Data Lab Results 02/28/21 Range/Units 22:34 Coronavirus (PCR) Not Detected (Not Detectd) Disposition Clinical Impression: Acute upper respiratory infection Disposition: HOME SELF-CARE Condition: Good Instructions (If sedation given, give patient instructions): Upper Respiratory Infection (ED) Is patient prescribed a controlled substance at d/c from ED?: No Referrals: None,Stated [Primary Care Provider] - 1-2 days
[2021-03-01 00:46] VITALS: TEMP 98.1
== END 2021-03-01 00:46 | disposition home or self-care (01) ==
LOC: EC 21:34
DX: J06.9 Acute upper respiratory infection, unspecified (principal); F17.200 Nicotine dependence, unspecified, uncomplicated
CPT/HCPCS: 71045; 87635; 99283

== ENCOUNTER 2021-07-01 08:27 | Emergency (ER) | payer OTHER ==
[2021-07-01 08:50] VITALS: BP 105/69; PULSE 88; RESP 18; TEMP 98.2
--- NOTE | 2021-07-01 09:46 | XR ---
EXAMINATION TYPE: XR chest 2V DATE OF EXAM: 07/01/2021 COMPARISON: 02/28/21 HISTORY: Chest pain TECHNIQUE: Frontal and lateral views of the chest are obtained. FINDINGS: There is no focal air space opacity. No evidence for pneumothorax. No pleural effusion. The cardiac silhouette size is within normal limits. The osseous structures are grossly intact. IMPRESSION: 1. No acute cardiopulmonary process.
--- NOTE | 2021-07-01 10:37 | ED ---
URI HPI - General Chief Complaint: Upper Respiratory Infection Stated Complaint: Fever,Cough,Vomiting Time Seen by Provider: 07/01/21 08:30 Source: patient, RN notes reviewed Mode of arrival: ambulatory Limitations: no limitations - History of Present Illness Initial Comments: 26-year-old female presents to emergency department with cough congestion. P chang has reported subjective fever she's had a nonproductive cough she has a history of asthma. She's had multiple sick contacts. Denies ear pain sore throat no headache currently but has had on-and-off headaches. No abdominal complaints. - Related Data Previous Rx's Medication Instructions Recorded Azithromycin [Zithromax Z-pack (6 0 mg PO DIRECTED #1 pack 03/01/21 tabs)] predniSONE 50 mg PO DAILY #5 tab 03/01/21 Albuterol Nebulized [Ventolin 2.5 mg INHALATION Q4H PRN #75 ml 07/01/21 Nebulized] Allergies Allergy/AdvReac Type Severity Reaction Status Date / Time Penicillins Allergy Rash/Hives Verified 07/01/21 08:51 Review of Systems ROS Statement: Those systems with pertinent positive or pertinent negative responses have been documented in the HPI. ROS Other: All systems not noted in ROS Statement are negative. Past Medical History Past Medical History: No Reported History History of Any Multi-Drug Resistant Organisms: None Reported Past Surgical History: Ear Surgery, Joint Replacement Additional Past Surgical History / Comment(s): left ACL repair. eustachian tubes. Past Anesthesia/Blood Transfusion Reactions: No Reported Reaction Past Psychological History: Anxiety Smoking Status: Current every day smoker Past Alcohol Use History: Occasional Past Drug Use History: None Reported - Past Family History Father Family Medical History: No Reported History General Exam Limitations: no limitations General appearance: alert, in no apparent distress Head exam: Present: atraumatic, normocephalic, normal inspection Eye exam: Present: normal appearance, PERRL, EOMI. Absent: scleral icterus, conjunctival injection, periorbital swelling ENT exam: Present: normal exam, normal oropharynx, mucous membranes moist Neck exam: Present: normal inspection, full ROM. Absent: tenderness, meningismus, lymphadenopathy Respiratory exam: Present: wheezes. Absent: normal lung sounds bilaterally, respiratory distress, rales, rhonchi, stridor Cardiovascular Exam: Present: regular rate, normal rhythm, normal heart sounds. Absent: systolic murmur, diastolic murmur, rubs, gallop, clicks Neurological exam: Present: alert, oriented X3, CN II-XII intact Course Vital Signs 07/01/21 08:47 Temperature 98.2 F Pulse Rate 88 Respiratory 18 Rate Blood Pressure 105/69 O2 Sat by Pulse 98 Oximetry Medical Decision Making - Medical Decision Making 18-year-old presents for cough and cold like symptoms. Patient is negative for COVID-19. Chest x-ray unremarkable. Patient does have some mild wheezing with her asthma will be given inhaler, albuterol. - Lab Data Lab Results 07/01/21 Range/Units 09:05 Coronavirus (PCR) Not Detected (Not Detectd) Disposition Clinical Impression: Upper respiratory tract infection Disposition: HOME SELF-CARE Condition: Stable Instructions (If sedation given, give patient instructions): Upper Respiratory Infection (ED) Additional Instructions: Please return to the Emergency Department if symptoms worsen or any other concerns. Prescriptions: Albuterol Nebulized [Ventolin Nebulized] 2.5 mg INHALATION Q4H PRN #75 ml PRN Reason: difficulty in breathing Is patient prescribed a controlled substance at d/c from ED?: No Referrals: None,Stated [Primary Care Provider] - 1-2 days Time of Disposition: 11:44
== END 2021-07-01 12:03 | disposition home or self-care (01) ==
LOC: EC 08:27
DX: J06.9 Acute upper respiratory infection, unspecified (principal); F41.9 Anxiety disorder, unspecified; F17.200 Nicotine dependence, unspecified, uncomplicated; Z20.822 Contact with and (suspected) exposure to COVID-19; Z88.0 Allergy status to penicillin
CPT/HCPCS: 71046; 87635; 99283

== ENCOUNTER 2021-09-25 16:46 | Outpatient (CLI) | payer OTHER ==
[2021-09-25 17:46] VITALS: BP 110/70; PULSE 87; RESP 16; TEMP 97.9
--- NOTE | 2021-09-26 11:23 | P.MSEPDOC ---
Presenting Problems - Arrival Data Date of Arrival on Unit: 09/25/21 Time of Arrival on Unit: 16:46 Mode of Transport: Ambulatory - Complaint OB-Reason for Admission/Chief Complaint: Other Comment: contractions Medical History - Information : 6 Para: 5 Term: 5 : 0 Abortions: Spontaneous or Elective: 0 Number of Living Children: 5 - Gestational Age Gestational Age by NICOLE (wks/days): 22 Weeks and 2 Days Review of Systems - Review of Systems Constitutional: No problems Breast: No problems ENT: No problems Cardiovascular: No problems Respiratory: No problems Gastrointestinal: No problems Genitourinary: No problems Musculoskeletal: No problems Neurological: No problems Skin: No problems Vital Signs - Temperature Temperature: 97.9 F Temperature Source: Tympanic - Pulse Right Brachial Pulse Rate: 87 Pulse Assessment Method: Automatic Cuff - Respirations Respiratory Rate: 16 Oxygen Delivery Method: Room Air - Blood Pressure Right Arm Blood Pressure: 110/70 Blood Pressure Mean: 83 Blood Pressure Source: Automatic Cuff Medical Screen Scoring - Cervical Exam Dilation (cm): 0.5 Effacement (%): 50 Station: -3 Membranes: Intact Physician Notification - Physician Notified Physician Notified Date: 09/25/21 Physician Notified Time: 17:00 Physician: Clayton Townsend Maternal Triage Index - Urgent/Priority 2 Urgent Priority 2: Yes Provider Notified: Clayton Townsend Provider Notified Time: 17:00 Criteria Met for Priority 2: Pt complaints of contractions Disposition - Disposition OB Disposition: Discharge to home Discharge Date: 09/25/21 Discharge Time: 17:15 I agree with the RN Medical Screening Exam: Yes Case reviewed; plan agreed upon as documented in EMR&OBIX.: Yes Diagnosis: FALSE LABOR BEFORE 37 COMPLETED WEEKS OF GEST, SECOND TRI
== END 2021-09-25 17:15 | disposition home or self-care (01) ==
LOC: FBPOP 16:46
PROVIDERS: ATTEND Obstetrics & Gynecology
DX: O47.02 False labor before 37 completed weeks of gestation, second trimester (principal); Z3A.22 22 weeks gestation of pregnancy; Z88.0 Allergy status to penicillin
CPT/HCPCS: 82731

== ENCOUNTER → 2021-12-10 | Outpatient (CLI) | payer OTHER ==
[2021-12-10 20:15] VITALS: BP 113/74; PULSE 90; RESP 14; TEMP 97.8
--- NOTE | 2021-12-11 06:46 | P.MSEPDOC ---
Presenting Problems - Arrival Data Date of Arrival on Unit: 12/10/21 Time of Arrival on Unit: 18:50 Mode of Transport: Ambulatory - Complaint OB-Reason for Admission/Chief Complaint: Possible Onset of Labor, Rule Out SROM Medical History - Information : 6 Para: 5 Term: 5 : 0 Abortions: Spontaneous or Elective: 0 Number of Living Children: 5 - Gestational Age Gestational Age by NICOLE (wks/days): 33 Weeks and 1 Days - History Complications: Smoker Review of Systems - Review of Systems Constitutional: No problems Breast: No problems ENT: No problems Cardiovascular: No problems Respiratory: No problems Gastrointestinal: No problems Genitourinary: No problems Musculoskeletal: No problems Neurological: No problems Skin: No problems Vital Signs - Temperature Temperature: 97.8 F Temperature Source: Temporal Artery Scan - Pulse Right Pulse Rate: 90 Pulse Assessment Method: Pulse Oximetry - Respirations Respiratory Rate: 14 Oxygen Delivery Method: Room Air O2 Sat by Pulse Oximetry: 99 - Blood Pressure Right Arm Blood Pressure: 113/74 Blood Pressure Mean: 87 Blood Pressure Source: Automatic Cuff Medical Screen Scoring - Cervical Exam Dilation (cm): 1 Membranes: Intact - Uterine Contractions Frequency From (mins): 4 Frequency To (mins): 11 Duration From (seconds): 60 Duration To (seconds): 100 Intensity: Mild Resting: Soft to palpation - Assessment - Baby A Baseline FHR: 145 Heart Rate - NICHD Category: Category I (Normal) NST: Reactive Physician Notification - Physician Notified Physician Notified Date: 12/10/21 Physician Notified Time: 19:32 Physician: Kris Branham New Order Received: Yes - Notification Comment Comment: Dr. Branham notified of pt's arrival to triage with c/o generalize abdominal. and back pain that comes and goes, and increased watery discharge. RN to gather FFN and Amnisure, and complete an SVE at this time. Maternal Triage Index - Maternal Triage Index Presenting for scheduled procedure w/no complaint: No - Stat/Priority 1 Stat Priority 1: No - Urgent/Priority 2 Urgent Priority 2: Yes Provider Notified: Kris Branham Provider Notified Time: 19:32 Criteria Met for Priority 2: with NICOLE 01/27/22 here at 33.1 weeks of gestation with c/o UC's felt as generalized abdominal and back pain, and c/o possible SROM. Disposition - Disposition OB Disposition: Discharge to home Discharge Date: 12/10/21 Discharge Time: 22:09 I agree with the RN Medical Screening Exam: Yes Case reviewed; plan agreed upon as documented in EMR&OBIX.: Yes Diagnosis: FALSE LABOR BEFORE 37 COMPLETED WEEKS OF GEST, THIRD TRI
== END ==
LOC: FBPOP 18:55
PROVIDERS: ATTEND Obstetrics & Gynecology
DX: O47.03 False labor before 37 completed weeks of gestation, third trimester (principal); O99.333 Smoking (tobacco) complicating pregnancy, third trimester; F17.200 Nicotine dependence, unspecified, uncomplicated; Z3A.33 33 weeks gestation of pregnancy
CPT/HCPCS: 59025; 84112; G0463; 99213

== ENCOUNTER 2021-12-20 20:40 | Outpatient (CLI) | payer OTHER ==
[2021-12-21 02:25] VITALS: BP 114/75; PULSE 102; RESP 18; TEMP 98.3
--- NOTE | 2021-12-22 12:32 | P.MSEPDOC ---
Presenting Problems - Arrival Data Date of Arrival on Unit: 12/20/21 Time of Arrival on Unit: 20:40 Mode of Transport: Ambulatory - Complaint OB-Reason for Admission/Chief Complaint: Vaginal Bleeding Comment: Patient arrives to triage with complaints of decreased movement,. contractions, and brown blood in underwear. Medical History - Information : 6 Para: 5 Term: 5 : 0 Abortions: Spontaneous or Elective: 0 Number of Living Children: 5 - Gestational Age Gestational Age by NICOLE (wks/days): 34 Weeks and 5 Days - History Complications: Smoker Review of Systems - Review of Systems Constitutional: No problems Breast: No problems ENT: No problems Cardiovascular: No problems Respiratory: No problems Gastrointestinal: No problems Genitourinary: No problems Musculoskeletal: No problems Neurological: No problems Skin: No problems Vital Signs - Temperature Temperature: 98.3 F Temperature Source: Oral - Pulse Right Brachial Pulse Rate: 102 Pulse Assessment Method: Pulse Oximetry - Respirations Respiratory Rate: 18 Oxygen Delivery Method: Room Air O2 Sat by Pulse Oximetry: 97 - Blood Pressure Right Arm Blood Pressure: 114/75 Blood Pressure Mean: 88 Blood Pressure Source: Automatic Cuff Medical Screen Scoring - Cervical Exam Dilation (cm): 1 Effacement (%): 70 Station: -1 Membranes: Intact - Uterine Contractions Intensity: Mild Resting: Soft to palpation - Assessment - Baby A Baseline FHR: 145 Heart Rate - NICHD Category: Category I (Normal) NST: Reactive Maternal Triage Index - Stat/Priority 1 Stat Priority 1: No - Urgent/Priority 2 Urgent Priority 2: Yes Provider Notified: Elise Choudhury Provider Notified Time: 21:09 Criteria Met for Priority 2: c/o decreased movement Disposition - Disposition OB Disposition: Discharge to home Discharge Date: 12/21/21 Discharge Time: 21:24 I agree with the RN Medical Screening Exam: Yes Case reviewed; plan agreed upon as documented in EMR&OBIX.: Yes Diagnosis: DECREASED MOVEMENTS, THIRD TRIMESTER, UNSP Additional Diagnoses: False labor and third trimester
== END 2021-12-20 21:40 | disposition home or self-care (01) ==
LOC: FBPOP 20:40
PROVIDERS: ATTEND Obstetrics & Gynecology
DX: O36.8130 Decreased fetal movements, third trimester, not applicable or unspecified (principal); O47.03 False labor before 37 completed weeks of gestation, third trimester; O99.333 Smoking (tobacco) complicating pregnancy, third trimester; F17.200 Nicotine dependence, unspecified, uncomplicated; Z3A.34 34 weeks gestation of pregnancy; Z88.0 Allergy status to penicillin
CPT/HCPCS: 59025; G0463; 99213

== ENCOUNTER 2021-12-26 00:50 | Inpatient (IN) | payer OTHER ==
[2021-12-26] MEDS ORDERED: OXYTOCIN 10 UNIT/ML 1 ML VIAL IM PRN (02:34)
[2021-12-26] MEDS ORDERED: TERBUTALINE 1 MG/ML VIAL SQ PRN (02:34)
[2021-12-26] MEDS ORDERED: CARBOPROST TROMETHAMINE 250 MCG/ML 1 ML AMP IM PRN (02:34)
[2021-12-26] MEDS ORDERED: LIDOCAINE 1% (PF) 10 MG/ML (30 ML SDV) SQ PRN (02:34)
[2021-12-26] MEDS ORDERED: METHYLERGONOVINE 0.2 MG/ML 1 ML AMP IM PRN (02:34)
[2021-12-26] MEDS ORDERED: LACTATED RINGERS 1,000 ML IV SCH (02:45)
[2021-12-26] MEDS ORDERED: OXYTOCIN 30 UNITS/500 ML NS 30 UNIT in SALINE 1 500ML.BAG IV SCH ×2 (02:45→03:30)
[2021-12-26] MEDS: LACTATED RINGERS 1,000 ML IV SCH ×2 (02:48→05:45)
[2021-12-26] MEDS ORDERED: AMPICILLIN 2,000 MG in SODIUM CHLORIDE 0.9% 100 ML IVPB ONE (03:00)
[2021-12-26 03:04] LABS: Basophils % (A) 0 %; Eosinophils % (A) 0 %; HCT 37.7 % (34.0-46.0); HGB 12.5 gm/dL (11.4-16.0); Lymphocytes # (A) 2.2 k/uL (1.0-4.8); Lymphocytes % (A) 21 %; MCH 31.6 pg (25.0-35.0); MCHC 33.1 g/dL (31.0-37.0); MCV 95.4 fL (80.0-100.0); Mean Platelet Volume 7.7; Monocytes # (A) 0.3 k/uL (0-1.0); Monocytes % (A) 2 %; Neutrophils # (A) 8.1 k/uL (1.3-7.7); Neutrophils % (A) 75 %; Platelet Count 227 k/uL (150-450); RBC 3.95 m/uL (3.80-5.40); RDW 13.6 % (11.5-15.5); WBC 10.9 k/uL (3.8-10.6)
[2021-12-26] MEDS ORDERED: ZOLPIDEM 5 MG TAB PO PRN (03:19)
[2021-12-26] MEDS ORDERED: diphenhydrAMINE 25 MG CAP PO PRN (03:19)
[2021-12-26] MEDS ORDERED: diphenhydrAMINE 50 MG CAP PO PRN (03:19)
[2021-12-26] MEDS ORDERED: diphenhydrAMINE 50 MG/ML 1 ML VIAL IVP PRN ×2 (03:19)
[2021-12-26] MEDS ORDERED: ACETAMINOPHEN TAB 325 MG TAB PO PRN (03:19)
[2021-12-26] MEDS ORDERED: LANOLIN CREAM 5 GM TUBE TOPICAL PRN (03:19)
[2021-12-26] MEDS ORDERED: BENZOCAINE/MENTHOL SPRAY 1 GM/SPRAY AEROSOL TOPICAL PRN (03:19)
[2021-12-26] MEDS ORDERED: SIMETHICONE 80 MG CHEWABLE PO PRN (03:19)
[2021-12-26] MEDS ORDERED: HYDROCORTISONE 2.5% RECTAL CREAM 30 GM TUBE RECTAL PRN (03:19)
[2021-12-26] MEDS ORDERED: IBUPROFEN 600 MG TAB PO PRN (03:19)
--- NOTE | 2021-12-26 03:23 | P.HPOB ---
History of Present Illness H&P Date: 12/26/21 Chief Complaint: labor 26 year old presents at 35 weeks 2 days in active labor. Her cervix made change from 2-4cm in triage. She is rose every 3-7 minutes. heart tones 140 with moderate variability. Review of Systems All systems: negative Constitutional: Denies chills, Denies fever Eyes: denies blurred vision, denies pain Ears, nose, mouth and throat: Denies headache, Denies sore throat Cardiovascular: Denies chest pain, Denies shortness of breath Respiratory: Denies cough Gastrointestinal: Denies abdominal pain, Denies diarrhea, Denies nausea, Denies vomiting Genitourinary: Denies dysuria, Denies hematuria Musculoskeletal: Denies myalgias Integumentary: Denies pruritus, Denies rash Neurological: Denies numbness, Denies weakness Psychiatric: Denies anxiety, Denies depression Endocrine: Denies fatigue, Denies weight change Past Medical History Past Medical History: No Reported History History of Any Multi-Drug Resistant Organisms: None Reported Past Surgical History: Ear Surgery, Joint Replacement Additional Past Surgical History / Comment(s): left ACL repair. eustachian tubes. Past Anesthesia/Blood Transfusion Reactions: No Reported Reaction Past Psychological History: Anxiety Smoking Status: Vaper Past Alcohol Use History: Occasional Past Drug Use History: None Reported - Past Family History Father Family Medical History: No Reported History Medications and Allergies Home Medications Medication Instructions Recorded Confirmed Type No Known Home Medications 12/10/21 12/21/21 History Allergies Allergy/AdvReac Type Severity Reaction Status Date / Time No Known Allergies Allergy Verified 12/26/21 01:01 Exam Osteopathic Statement: *. No significant issues noted on an osteopathic structural exam other than those noted in the History and Physical/Consult. Vital Signs Temp Pulse Resp BP 12/26/21 02:33 98.0 F 80 16 125/66 Intake and Output 12/25/21 12/25/21 12/26/21 14:59 22:59 06:59 Other: Weight 51.71 kg Heart: Regular rate and rhythm Lungs: Clear to auscultation bilaterally Abdomen: Soft, nontender Extremities: Negative Homans sign Results Result Diagrams: 12/26/21 02:45 Abnormal Lab Results - Last 24 Hours (Table) 12/26/21 Range/Units 02:45 WBC 10.9 H (3.8-10.6) k/uL Neutrophils # 8.1 H (1.3-7.7) k/uL Assessment and Plan (1) Normal labor Current Visit: Yes Status: Acute Code(s): O80 - ENCOUNTER FOR FULL-TERM UNCOMPLICATED DELIVERY; Z37.9 - OUTCOME OF DELIVERY, UNSPECIFIED SNOMED Code(s): 96581163 Plan: 1. admit to [facility] 2. expectant management 3. anticipate normal vaginal delivery
--- NOTE | 2021-12-26 03:24 | P.PROBDLV ---
Vaginal Delivery Note - . Vaginal Delivery Note: 26 year old presents at 35 weeks 2 days in active labor. Her cervix made change from 2-4cm in triage. She is rose every 3-7 minutes. heart tones 140 with moderate variability. Patient quickly dilated 9 cm amniotomy was performed and she was complete at 0306. She pushed, delivered a viable male over intact perineum at 3:07 AM. Head delivered OA, anterior shoulder delivered gentle downward guidance all the posterior shoulder and rest of body. Nose and mouth bulb suctioned, cord clamped and cut, infant placed mother's abdomen. Apgars 8, 9, weight 4 lbs. 10 oz. Placenta delivered spontaneously, intact with three-vessel cord at 3:09 AM. Vagina, cervix, perineum inspected. No lacerations noted. Estimated blood loss 50 mL. Mother and baby in stable condition.
[2021-12-26] MEDS ORDERED: AMPICILLIN 1,000 MG in SODIUM CHLORIDE 0.9% 50 ML IVPB SCH (07:00)
[2021-12-26] MEDS ORDERED: SENNOSIDES-DOCUSATE SODIUM 1 EACH TAB PO SCH (08:00)
[2021-12-26 10:28] VITALS: RESP 16
[2021-12-26 14:05] VITALS: TEMP 98.3
[2021-12-26 15:39] VITALS: BP 104/66; PULSE 89
--- NOTE | 2021-12-26 18:51 | P.DS ---
Providers Date of admission: 12/26/21 02:33 Expected date of discharge: 12/26/21 Attending physician: Pooja Franks Primary care physician: Stated None Hospital Course: This is a 26-year-old female 6 para 5 at 35-3/7 weeks who presented in active labor. She delivered vaginally a viable male on 12/26/2021 at approximately 3 AM. Her baby did go to level I nursery due to prematurity. She is bottle feeding. Lochia has been minimal. Pain has been minimal. She has not been taking any pain medication. She would like to go home today since her baby is in the nursery and she needs to attend to her other kids. Vital signs are stable. Abdomen is soft with fundus firm and nontender. Extremities show negative Homans. Impression is status post vaginal delivery day #0. Plan is to discharge home now per patient request. She denies the need for a breast pump or any pain medication. She is advised to follow up with Dr. Franks in the office in 6 weeks. She is advised to call if she has any further qu estions or concerns prior to her appointment time. Routine instructions are given. Procedures: Spontaneous vaginal delivery of a viable male on 12/26/2021 Patient Condition at Discharge: Stable Plan - Discharge Summary New Discharge Prescriptions: No Action No Known Home Medications Discharge Medication List No Known Home Medications 12/10/21 [History] Follow up Appointment(s)/Referral(s): Pooja Franks DO [Doctor of Osteopathic Medicine] - 02/07/22 3:45 pm Activity/Diet/Wound Care/Special Instructions: Instructions 1. Do not begin any exercise program for 3 weeks. 2. Do not resume sexual relations for 3 weeks or longer if uncomfortable. 3. You may take tub baths or showers at any time. 4. You may use tampons if desired after 3 weeks. 5. Keep the area of episiotomy (stitches) clean and dry. 6. If you are not nursing, wear a good fitting, supportive bra during the day and limit fluid intake for at least 1 week to prevent breast engorgement. 7. Call the office, [phone], within the next week to make appointment for your 6 week checkup if it has not already been made. 8. Report any of the following occurrences to the doctor promptly: a. Heavy, excessive bleeding b. Chills, fever c. Burning or frequency of urination d. Pain or redness and breasts if nursing e. Increasing pain or swelling in episiotomy (stitches). In addition to the above instructions, the following additional should be followed: 1. No heavy lifting or straining (exercising) until after 6 week checkup. 2. Keep abdominal incision clean and dry: You may wear a dressing if more comfortable. 3. Make office appointment for 10 days after going home or as instructed by her doctor. Discharge Disposition: HOME SELF-CARE
== END 2021-12-26 19:20 | disposition home or self-care (01) | DRG 807 ==
LOC: FBPOP 00:50 → 4FBP 02:33
PROVIDERS: ADMIT Obstetrics & Gynecology; ATTEND Obstetrics & Gynecology
PROC: 10E0XZZ Delivery of Products of Conception, External Approach (ICD-10-PCS; principal; 2021-12-26)
PROC: 4A0HXCZ Measurement of Products of Conception, Cardiac Rate, External Approach (ICD-10-PCS; 2021-12-26)
PROC: 10907ZC Drainage of Amniotic Fluid, Therapeutic from Products of Conception, Via Natural or Artificial Opening (ICD-10-PCS; 2021-12-26)
DX: O60.14X0 Preterm labor third trimester with preterm delivery third trimester, not applicable or unspecified (principal); Z37.0 Single live birth; O99.344 Other mental disorders complicating childbirth; O99.334 Smoking (tobacco) complicating childbirth; F17.290 Nicotine dependence, other tobacco product, uncomplicated; F41.9 Anxiety disorder, unspecified; Z3A.35 35 weeks gestation of pregnancy; Z96.60 Presence of unspecified orthopedic joint implant
CPT/HCPCS: 59025; 85025; 86850; 86900; 86901; 88307; 96365; 99213

== ENCOUNTER → 2022-04-02 | Outpatient (CLI) | payer OTHER ==
[2022-04-02 14:17] LABS: Basophils # (A) 0.03 X 10*3/uL (0.00-0.10); Basophils % (A) 0.3 %; Eosinophils # (A) 0.22 X 10*3/uL (0.04-0.35); Eosinophils % (A) 2.4 %; HCT 35.5 % (37.2-46.3); HGB 11.6 g/dL (12.0-15.0); Immature Grans, Automated 0.5 %; Lymphocytes # (A) 1.84 X 10*3/uL (0.90-5.00); Lymphocytes % (A) 20.2 %; MCH 30.1 pg (27.0-32.0); MCHC 32.7 g/dL (32.0-37.0); MCV 92.2 fL (80.0-97.0); Mean Platelet Volume 11.2 fL (9.5-12.2); Monocytes # (A) 0.39 X 10*3/uL (0.20-1.00); Monocytes % (A) 4.3 %; NRBC Per 100 WBC 0 /100 WBCS (0.0-0.0); Neutrophils # (A) 6.58 X 10*3/uL (1.80-7.70); Neutrophils % (A) 72.3 %; Platelet Count 258 X 10*3/uL (140-440); RBC 3.85 X 10*6/uL (4.10-5.20); RDW 13.2 % (11.5-14.5); WBC 9.11 X 10*3/uL (4.50-10.00)
== END | disposition home or self-care (01) ==
LOC: LABPAT 10:34
PROVIDERS: ATTEND Obstetrics & Gynecology
DX: Z01.818 Encounter for other preprocedural examination (principal)
CPT/HCPCS: 85025

== ENCOUNTER → 2023-11-09 | Outpatient (CLI) | payer OTHER ==
--- NOTE | 2023-11-09 15:19 | US ---
EXAMINATION TYPE: Transabdominal DATE OF EXAM: 11/09/2023 3:07 PM COMPARISON: NONE CLINICAL INDICATION: Female, 28 years old with history of Z34.90 ENCNTR FOR SUPRVSN OF NORMAL PREGNAN CY; EXAM PERFORMED: Transabdominal (TA) EXAM MEASUREMENTS: GESTATIONAL AGE / DATING Physician Established: (9 weeks/6 days) EDC: 06/07/2024 Dates by LMP: NA ( weeks/ days) EDC: Dates by First Scan: This is first scan ( weeks/ days) EDC: Dates by Current Scan for: (10 weeks/4 days) EDC: 06/02/2024 MATERNAL ANATOMY Uterus: 11.5 x 6.1 x 7.9 cm Right Ovary: 2.6 x 2.3 x 1.6 cm Left Ovary: 2.7 x 2.0 x 2.9 Post CDS / Adnexa: WNL Presence of free fluid: No Presence of corpus luteal cyst: Left Ovary Presence of subchorionic bleed: No GESTATION / SURVEY CRL: 3.66 (10 weeks/4 days) MSD: NA ( weeks/ days) Yolk Sac (normal less than 6mm): 0.4 Heart Rate: 167 bpm Rhythm: Normal IUP: Viable IUP Nuchal Translucency 10-14wks (normal less than 3mm): NA Age Appropriate Anatomy Cord Insertion: NA Limbs: NA Calvarium: NA Date of LMP: Unknown Beta HcG (if available): Not available at this time IMPRESSION: 1. Single viable intrauterine .
== END | disposition home or self-care (01) ==
LOC: RADUSWWP 14:52
PROVIDERS: ATTEND Obstetrics & Gynecology
DX: Z34.91 Encounter for supervision of normal pregnancy, unspecified, first trimester (principal); Z3A.11 11 weeks gestation of pregnancy
CPT/HCPCS: 76801

== ENCOUNTER 2024-06-12 10:04 | Emergency (ER) | payer OTHER ==
[2024-06-12 10:15] VITALS: RESP 18
[2024-06-12] MEDS: IBUPROFEN 600 MG TAB PO STA (10:49)
[2024-06-12] MEDS: BENZONATATE 100 MG CAP PO STA (10:50)
--- NOTE | 2024-06-12 11:13 | XR ---
EXAMINATION TYPE: XR chest 2V DATE OF EXAM: 06/12/2024 COMPARISON: 07/01/2021 INDICATION: Fever TECHNIQUE: Frontal and lateral views of the chest are obtained. FINDINGS: The heart size is normal. The pulmonary vasculature is normal. The lungs are clear. IMPRESSION: 1. No acute pulmonary process.
--- NOTE | 2024-06-12 11:23 | ED ---
General Adult HPI - General Chief complaint: Shortness of Breath Stated complaint: Covid+ Time Seen by Provider: 06/12/24 11:21 Source: patient, RN notes reviewed Mode of arrival: ambulatory Limitations: no limitations - History of Present Illness Initial comments: 29-year-old female presented to the ER with a chief complaint of cough. Patient was seen by urgent care and diagnosed with COVID yesterday. Patient states that she has had mild shortness of breath and a persistent cough which has kept her up all night. She has been taking [id number] Tylenol for fever control. Symptoms started , 06/09/24, cough, congestion and myalgias. Patient denies any shortness of breath or chest pain. No significant past medical history. No other complaints. - Related Data Previous Rx's Medication Instructions Recorded Albuterol Inhaler [Ventolin Hfa 1 - 2 puff INHALATION Q6H PRN #1 06/12/24 Inhaler] each Benzonatate [Tessalon Perles] 100 mg PO BID #15 capsule 06/12/24 Allergies Allergy/AdvReac Type Severity Reaction Status Date / Time amoxicillin Allergy Rash/Hives Verified 06/12/24 10:14 Penicillins Allergy Rash/Hives Verified 06/12/24 10:14 Review of Systems ROS Statement: Those systems with pertinent positive or pertinent negative responses have been documented in the HPI. ROS Other: All systems not noted in ROS Statement are negative. Past Medical History Past Medical History: No Reported History History of Any Multi-Drug Resistant Organisms: None Reported Past Surgical History: Ear Surgery, Joint Replacement Additional Past Surgical History / Comment(s): left ACL repair. eustachian tubes. Past Anesthesia/Blood Transfusion Reactions: No Reported Reaction Past Psychological History: Anxiety Smoking Status: Current every day smoker, Vaper Past Alcohol Use History: Occasional Past Drug Use History: None Reported - Past Family History Father Family Medical History: No Reported History General Exam Limitations: no limitations General appearance: alert, in no apparent distress ENT exam: Present: normal exam, normal oropharynx, mucous membranes moist, TM's normal bilaterally Neck exam: Present: normal inspection. Absent: tenderness, meningismus, l ymphadenopathy Respiratory exam: Present: normal lung sounds bilaterally. Absent: respiratory distress, wheezes, rales, rhonchi, stridor Cardiovascular Exam: Present: regular rate, normal rhythm, normal heart sounds. Absent: systolic murmur, diastolic murmur, rubs, gallop, clicks Extremities exam: Present: normal inspection, full ROM, normal capillary refill. Absent: tenderness, pedal edema, joint swelling, calf tenderness Neurological exam: Present: alert, oriented X3, CN II-XII intact Skin exam: Present: warm, dry, intact, normal color. Absent: rash Course Vital Signs 06/12/24 06/12/24 10:06 12:05 Temperature 99.7 F H 98.8 F Pulse Rate 96 90 Respiratory 18 18 Rate Blood Pressure 111/70 120/68 O2 Sat by Pulse 96 96 Oximetry Medical Decision Making - Medical Decision Making Was pt. sent in by a medical professional or institution (, PA, TRIM DIE MAKER, urgent care, hospital, or jail...) When possible be specific @ -No Did you speak to anyone other than the patient for history (EMS, parent, family, police, friend...)? What history was obtained from this source @ -No Did you review nursing and triage notes (agree or disagree)? Why? @ -I reviewed and agree with nursing and triage notes Were old charts reviewed (outside hosp., previous admission, EMS record, old EKG, old radiological studies, urgent care reports/EKG's, jail records)? Report findings @ -No old charts were reviewed Differential Diagnosis (chest pain, altered mental status, abdominal pain women, abdominal pain men, vaginal bleeding, weakness, fever, dyspnea, syncope, headache, dizziness, GI bleed, back pain, seizure, CVA, palpatations, mental health, musculoskeletal)? @ -COVID, RSV, influenza, viral sinusitis, pneumonia this list is not meant to be all-inclusive EKG interpreted by me (3pts min.). @ -None X-rays interpreted by me (1pt min.). @ -Chest x-ray interpreted by me negative for acute cardiopulmonary process. CT interpreted by me (1pt min.). @ -None done U/S interpreted by me (1pt. min.). @ -None done What testing was considered but not performed or refused? (CT, X-rays, U/S, labs)? Why? @ -None What meds were considered but not given or refused? Why? @ -None Did you discuss the management of the patient with other professionals (professionals i.e. , PA, TRIM DIE MAKER, lab, RT, psych nurse, high school social studies teacher, qa automation developer, teacher, hotel security officer, rehabilitation case coordinator)? Give summary @ -No Was smoking cessation discussed for >3mins.? @ -I discussed smoking cessation for greater than 3 minutes. The risk of smoking were discussed with the patient including but not limited to risks of cancer, stroke, coronary artery disease and COPD. Also discussed with patient were multiple methods of quitting smoking. Lastly we discussed the financial cost of smoking. Was critical care preformed (if so, how long)? @ -No Were there social determinants of health that impacted care today? How? (Homelessness, low income, unemployed, alcoholism, drug addiction, transportation, low edu. Level, literacy, decrease access to med. care, halfway, rehab)? @ -No Was there de-escalation of care discussed even if they declined (Discuss DNR or withdrawal of care, Hospice)? DNR status @ -No What co-morbidities impacted this encounter? (DM, HTN, Smoking, COPD, CAD, Cancer, CVA, ARF, Chemo, Hep., AIDS, mental health diagnosis, sleep apnea, morbid obesity)? @ -None Was patient admitted / discharged? Hospital course, mention meds given and route, prescriptions, significant lab abnormalities, going to OR and other pertinent info. @ -Discharge. 29-year-old female presented to the ER with a chief complaint of cough and fever. History and physical exam completed. Vitals remarkable for temperature 99.7 upon arrival. Vitals otherwise stable. Patient in no signs of acute distress but is ill-appearing. Lung sounds clear to auscultation bilaterally. Exam otherwise unremarkable. Patient tested positive for COVID-19 yesterday at urgent care. Chest x-ray negative for acute cardiopulmonary process. Patient received by mouth ibuprofen for symptom control in the ER. Upon reevaluation, patient eager for discharge and no signs of acute distress. Albuterol inhaler and Tessalon Perles prescribed. I advised [id number]-[id number] Tylenol and Motrin for fever control. Return parameters discussed. Patient discharged in stable condition with follow-up to PCP. Patient verbally expressed understanding and agreed with care plan. Case discussed with ED attending, Dr. Bravo. Undiagnosed new problem with uncertain prognosis? @ -No Drug Therapy requiring intensive monitoring for toxicity (Heparin, Nitro, Insulin, Cardizem)? @ -No Were any procedures done? @ -No Diagnosis/symptom? @ -COVID-19/viral illness/viral sinusitis Acute, or Chronic, or Acute on Chronic? @ -Acute Uncomplicated (without systemic symptoms) or Complicated (systemic symptoms)? @ -Uncomplicated Side effects of treatment? @ -No Exacerbation, Progression, or Severe Exacerbation? @ -No Poses a threat to life or bodily function? How? (Chest pain, [place], [place], pneumonia, PE, COPD, DKA, ARF, appy, cholecystitis, CVA, Diverticulitis, Homicidal, Suicidal, threat to staff... and all critical care pts) @ -No - Radiology Data Radiology results: report reviewed, image reviewed Disposition Clinical Impression: COVID-19, Viral illness, Acute viral sinusitis Disposition: HOME SELF-CARE Condition: Stable Instructions (If sedation given, give patient instructions): Fever in Adults (ED) Additional Instructions: You may take yimv-elh-xaoupif Tylenol and Motrin for fever control. Follow-up with PCP. Return to the ER for any new or worsening concerns. Prescriptions: Benzonatate [Tessalon Perles] 100 mg PO BID #15 capsule Albuterol Inhaler [Ventolin Hfa Inhaler] 1 - 2 puff INHALATION Q6H PRN #1 each PRN Reason: Shortness Of Breath Is patient prescribed a controlled substance at d/c from ED?: No Referrals: None,Stated [Primary Care Provider] - 1-2 days Forms: Area PCPs Time of Disposition: 11:49
[2024-06-12 12:07] VITALS: BP 120/68; PULSE 90; TEMP 98.8
== END 2024-06-12 12:07 | disposition home or self-care (01) ==
LOC: EC 10:04
DX: U07.1 COVID-19 (principal); J01.90 Acute sinusitis, unspecified; F17.290 Nicotine dependence, other tobacco product, uncomplicated; Z88.0 Allergy status to penicillin
CPT/HCPCS: 71046; 99284; 99406

== ENCOUNTER 2024-09-19 09:27 | Emergency (ER) | payer OTHER ==
--- NOTE | 2024-09-19 10:26 | ED ---
Nausea/Vomiting/Diarrhea HPI - General Chief complaint: Nausea/Vomiting/Diarrhea Stated complaint: vomitting Time Seen by Provider: 09/19/24 10:23 Source: patient, RN notes reviewed Mode of arrival: ambulatory Limitations: no limitations - History of Present Illness Initial comments: 29-year-old female presenting to the ER chief complaint of abdominal pain x 5 hours with associated nausea and diarrhea. Patient states she woke up at 5 AM this morning with intermittent diffuse abdominal cramps. 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 Denies urinary symptoms, vaginal bleeding, vaginal discharge. States she had a miscarriage 2 months ago however has had no issues since. Denies other past medical history or abdominal surgical history. - Related Data Home Medications Medication Instructions Recorded Confirmed No Known Home Medications 09/19/24 09/19/24 Allergies Allergy/AdvReac Type Severity Reaction Status Date / Time amoxicillin Allergy Rash/Hives Verified 09/19/24 13:56 Penicillins Allergy Rash/Hives Verified 09/19/24 13:56 Review of Systems ROS Statement: Those systems with pertinent positive or pertinent negative responses have been documented in the HPI. ROS Other: All systems not noted in ROS Statement are negative. Past Medical History Past Medical History: No Reported History History of Any Multi-Drug Resistant Organisms: None Reported Past Surgical History: Ear Surgery, Joint Replacement Additional Past Surgical History / Comment(s): left ACL repair. eustachian tubes. Past Anesthesia/Blood Transfusion Reactions: No Reported Reaction Past Psychological History: Anxiety Smoking Status: Current every day smoker, Vaper Past Alcohol Use History: Occasional Past Drug Use History: None Reported - Past Family History Father Family Medical History: No Reported History General Exam Limitations: no limitations General appearance: alert, in no apparent distress Head exam: Present: atraumatic, normocephalic, normal inspection Eye exam: Present: normal appearance, PERRL, EOMI. Absent: scleral icterus, conjunctival injection, periorbital swelling ENT exam: Present: normal exam, mucous membranes moist Respiratory exam: Present: normal lung sounds bilaterally. Absent: respiratory distress, wheezes, rales, rhonchi, stridor Cardiovascular Exam: Present: regular rate, normal rhythm, normal heart sounds. Absent: systolic murmur, diastolic murmur, rubs, gallop, clicks GI/Abdominal exam: Present: soft, normal bowel sounds. Absent: distended, tenderness, guarding, rebound, rigid Neurological exam: Present: alert, oriented X3 Psychiatric exam: Present: normal affect, normal mood Skin exam: Present: warm, dry, intact, normal color. Absent: rash Course Vital Signs 09/19/24 09/19/24 09:43 12:59 Temperature 98.8 F Pulse Rate 95 67 Respiratory 20 20 Rate Blood Pressure 108/75 95/65 O2 Sat by Pulse 97 98 Oximetry Medical Decision Making - Medical Decision Making Was pt. sent in by a medical professional or institution (, PA, EARLY CHILDHOOD WORKER, urgent care, hospital, or [place] health care facility...) When possible be specific @ -No Did you speak to anyone other than the patient for history (EMS, parent, family, police, friend...)? What history was obtained from this source @ -No Did you review nursing and triage notes (agree or disagree)? Why? @ -I reviewed and agree with nursing and triage notes Were old charts reviewed (outside hosp., previous admission, EMS record, old EKG, old radiological studies, urgent care reports/EKG's, [place] health care facility records)? Report findings @ -No old charts were reviewed Differential Diagnosis (chest pain, altered mental status, abdominal pain women, abdominal pain men, vaginal bleeding, weakness, fever, dyspnea, syncope, headache, dizziness, GI bleed, back pain, seizure, CVA, palpatations, mental health, musculoskeletal)? @ -Differential : Appendicitis, Cholecystitis, diverticulosis, ischemic bowel, pancreatitis, hepatitis, UTI, gastroenteritis, AAA, incarcerated hernia, bowel obstruction, constipation, inflammatory bowel, hepatitis, peptic ulcer disease, splenic infarction, perforated viscus, vulvitis, ovarian torsion, PID, kidney stone, placenta abruption, this is not meant to be an all-inclusive list EKG interpreted by me (3pts min.). @ -None X-rays interpreted by me (1pt min.). @ -None done CT interpreted by me (1pt min.). @ -None done U/S interpreted by me (1pt. min.). @ -None done What testing was considered but not performed or refused? (CT, X-rays, U/S, labs)? Why? @ -Imaging considered however deferred due to abdomen soft and nontender, unremarkable lab work What meds were considered but not given or refused? Why? @ -None Did you discuss the management of the patient with other professionals (professionals i.e. ., PA, EARLY CHILDHOOD WORKER, lab, RT, psych nurse, social work manager, corporation lawyer, teacher, safety patrol officer, case making machine operator)? Give summary @ -No Was smoking cessation discussed for >3mins.? @ -No Was critical care preformed (if so, how long)? @ -No Were there social determinants of health that impacted care today? How? (Homelessness, low income, unemployed, alcoholism, drug addiction, transportation, low edu. Level, literacy, decrease access to med. care, usp, rehab)? @ -No Was there de-escalation of care discussed even if they declined (Discuss DNR or withdrawal of care, Hospice)? DNR status @ -No What co-morbidities impacted this encounter? (DM, HTN, Smoking, COPD, CAD, Cancer, CVA, ARF, Chemo, Hep., AIDS, mental health diagnosis, sleep apnea, morbid obesity)? @ -None Was patient admitted / discharged? Hospital course, mention meds given and route, prescriptions, significant lab abnormalities, going to OR and other pertinent info. @ -Discharge. This is a 29-year-old female presenting with abdominal pain with associated nausea, vomiting, and diarrhea. Vital signs are within acceptable limits. Abdomen is soft and nontender. She is provided with IV fluids, antiemetics, and analgesics. Lab work unremarkable. Urinalysis is contaminated sample, not indicative of UTI. Urine negative. Upon reevaluation, patient reports significant improvement of symptoms. Discussed diagnosis of gastroenteritis with patient. Appropriate return precautions and supportive care discussed. Case was cussed with my ED attending Dr. Solo. Undiagnosed new problem with uncertain prognosis? @ -No Drug Therapy requiring intensive monitoring for toxicity (Heparin, Nitro, Insulin, Cardizem)? @ -No Were any procedures done? @ -No Diagnosis/symptom? @ -Gastroenteritis Acute, or Chronic, or Acute on Chronic? @ -Acute Uncomplicated (without systemic symptoms) or Complicated (systemic symptoms)? @ -Uncomplicated Side effects of treatment? @ -No Exacerbation, Progression, or Severe Exacerbation? @ -No Poses a threat to life or bodily function? How? (Chest pain, [place], [place], pneumonia, PE, COPD, DKA, ARF, appy, cholecystitis, CVA, Diverticulitis, Homicidal, S uicidal, threat to staff... and all critical care pts) @ -Not at this time - Lab Data Result diagrams: 09/19/24 10:44 09/19/24 10:44 Lab Results 09/19/24 09/19/24 09/19/24 Range/Units 10:44 10:44 10:44 WBC 8.1 (3.8-10.6) k/uL RBC 4.47 (3.80-5.40) m/uL Hgb 13.9 (11.4-16.0) gm/dL Hct 42.4 (34.0-46.0) % MCV 94.9 (80.0-100.0) fL MCH 31.0 (25.0-35.0) pg MCHC 32.7 (31.0-37.0) g/dL RDW 12.5 (11.5-15.5) % Plt Count 196 (150-450) k/uL MPV 8.0 Neutrophils % 89 % Lymphocytes % 7 % Monocytes % 2 % Eosinophils % 2 % Basophils % 0 % Neutrophils # 7.2 (1.3-7.7) k/uL Lymphocytes # 0.5 L (1.0-4.8) k/uL Monocytes # 0.2 (0-1.0) k/uL Eosinophils # 0.1 (0-0.7) k/uL Basophils # 0.0 (0-0.2) k/uL Sodium 134 L (137-145) mmol/L Potassium 4.1 (3.5-5.1) mmol/L Chloride 105 (98-107) mmol/L Carbon Dioxide 22 (22-30) mmol/L Anion Gap 7 mmol/L BUN 13 (7-17) mg/dL Creatinine 0.67 (0.52-1.04) mg/dL Est GFR (CKD-EPI)AfAm >90 (>60 ml/min/1.73 sqM) Est GFR (CKD-EPI)NonAf >90 (>60 ml/min/1.73 sqM) Glucose 101 H (74-99) mg/dL Plasma Lactic Acid Riley 1.1 (0.7-2.0) mmol/L Calcium 8.9 (8.4-10.2) mg/dL Total Bilirubin 0.9 (0.2-1.3) mg/dL AST 17 (14-36) U/L ALT 10 (4-34) U/L Alkaline Phosphatase 86 (38-126) U/L Total Protein 7.3 (6.3-8.2) g/dL Albumin 4.5 (3.5-5.0) g/dL Lipase 65 (23-300) U/L Urine Color Urine Appearance (Clear) Urine pH (5.0-8.0) Ur Specific [place] (1.001-1.035) Urine Protein (Negative) Urine Glucose (UA) (Negative) Urine Ketones (Negative) Urine Blood (Negative) Urine Nitrite (Negative) Urine Bilirubin (Negative) Urine Urobilinogen (<2.0) mg/dL Ur Leukocyte Esterase (Negative) Urine RBC (0-5) /hpf Urine WBC (0-5) /hpf Ur Squamous Epith Cells (0-4) /hpf Urine Mucus (None) /hpf Urine HCG, Qual (Not Detectd) 09/19/24 09/19/24 Range/Units 11:44 11:44 WBC (3.8-10.6) k/uL RBC (3.80-5.40) m/uL Hgb (11.4-16.0) gm/dL Hct (34.0-46.0) % MCV (80.0-100.0) fL MCH (25.0-35.0) pg MCHC (31.0-37.0) g/dL RDW (11.5-15.5) % Plt Count (150-450) k/uL MPV Neutrophils % % Lymphocytes % % Monocytes % % Eosinophils % % Basophils % % Neutrophils # (1.3-7.7) k/uL Lymphocytes # (1.0-4.8) k/uL Monocytes # (0-1.0) k/uL Eosinophils # (0-0.7) k/uL Basophils # (0-0.2) k/uL Sodium (137-145) mmol/L Potassium (3.5-5.1) mmol/L Chloride (98-107) mmol/L Carbon Dioxide (22-30) mmol/L Anion Gap mmol/L BUN (7-17) mg/dL Creatinine (0.52-1.04) mg/dL Est GFR (CKD-EPI)AfAm (>60 ml/min/1.73 sqM) Est GFR (CKD-EPI)NonAf (>60 ml/min/1.73 sqM) Glucose (74-99) mg/dL Plasma Lactic Acid Riley (0.7-2.0) mmol/L Calcium (8.4-10.2) mg/dL Total Bilirubin (0.2-1.3) mg/dL AST (14-36) U/L ALT (4-34) U/L Alkaline Phosphatase (38-126) U/L Total Protein (6.3-8.2) g/dL Albumin (3.5-5.0) g/dL Lipase (23-300) U/L Urine Color Colorless Urine Appearance Cloudy H (Clear) Urine pH 5.0 (5.0-8.0) Ur Specific [place] 1.017 (1.001-1.035) Urine Protein Negative (Negative) Urine Glucose (UA) Negative (Negative) Urine Ketones Negative (Negative) Urine Blood Trace H (Negative) Urine Nitrite Negative (Negative) Urine Bilirubin Negative (Negative) Urine Urobilinogen <2.0 (<2.0) mg/dL Ur Leukocyte Esterase Moderate H (Negative) Urine RBC 1 (0-5) /hpf Urine WBC 1 (0-5) /hpf Ur Squamous Epith Cells 7 H (0-4) /hpf Urine Mucus Rare H (None) /hpf Urine HCG, Qual Not Detected (Not Detectd) Disposition Clinical Impression: Gastroenteritis Disposition: HOME SELF-CARE Condition: Stable Instructions (If sedation given, give patient instructions): Gastroenteritis (ED) Additional Instructions: Take Zofran as needed for nausea. Please return to the Emergency Department if symptoms worsen or any other concerns. Is patient prescribed a controlled substance at d/c from ED?: No Referrals: [facility] [NON-STAFF] - 1-2 days [facility] [NON-STAFF] - 1-2 days None,Stated [Primary Care Provider] - 1-2 days Forms: PH Area PCPs Time of Disposition: 14:06
[2024-09-19] MEDS: KETOROLAC 15 MG/ML 1 ML VIAL IVP STA ×2 (10:43→14:27)
[2024-09-19] MEDS: SODIUM CHLORIDE 0.9% 1,000 ML IV STA (10:44)
[2024-09-19] MEDS: ONDANSETRON 4 MG/2 ML VIAL IVP STA ×2 (10:44→14:27)
[2024-09-19 10:57] LABS: Basophils % (A) 0 %; Eosinophils # (A) 0.1 k/uL (0-0.7); Eosinophils % (A) 2 %; HCT 42.4 % (34.0-46.0); HGB 13.9 gm/dL (11.4-16.0); Lymphocytes # (A) 0.5 k/uL (1.0-4.8); Lymphocytes % (A) 7 %; MCHC 32.7 g/dL (31.0-37.0); MCV 94.9 fL (80.0-100.0); Monocytes # (A) 0.2 k/uL (0-1.0); Monocytes % (A) 2 %; Neutrophils # (A) 7.2 k/uL (1.3-7.7); Neutrophils % (A) 89 %; Platelet Count 196 k/uL (150-450); RBC 4.47 m/uL (3.80-5.40); RDW 12.5 % (11.5-15.5); WBC 8.1 k/uL (3.8-10.6)
[2024-09-19 11:10] LABS: ALT 10 U/L (4-34); AST 17 U/L (14-36); African American GFR (CKD) >90 (>60 ml/min/1.73 sqM); Albumin 4.5 g/dL (3.5-5.0); Alkaline Phosphatase 86 U/L (38-126); Anion Gap 7 mmol/L; Blood Urea Nitrogen 13 mg/dL (7-17); Calcium 8.9 mg/dL (8.4-10.2); Carbon Dioxide 22 mmol/L (22-30); Chloride 105 mmol/L (98-107); Glucose 101 mg/dL (74-99); Lipase 65 U/L (23-300); Non-African American GFR(CKD) >90 (>60 ml/min/1.73 sqM); Potassium 4.1 mmol/L (3.5-5.1); Sodium 134 mmol/L (137-145); Total Bilirubin 0.9 mg/dL (0.2-1.3); Total Protein 7.3 g/dL (6.3-8.2)
[2024-09-19 12:31] LABS: Appearance,Urine Cloudy (Clear); Bilirubin,Urine Negative (Negative); Blood,Urine Trace (Negative); Color,Urine Colorless; Glucose,Urine (UA) Negative (Negative); Ketones,Urine Negative (Negative); Leukocyte Esterase,Urine Moderate (Negative); Mucus,Urine Rare /hpf; Nitrite,Urine Negative (Negative); Protein,Urine Negative (Negative); RBC,Urine 1 /hpf (0-5); Specific Gravity,Urine 1.017 (1.001-1.035); Squamous Epithelial Cell,Urine 7 /hpf (0-4); Urobilinogen,Urine <2.0 mg/dL (<2.0); WBC,Urine 1 /hpf (0-5)
[2024-09-19] MEDS: ONDANSETRON 4 MG ODT STARTER PACK 2 TAB BTL PO STA (14:27)
[2024-09-19 14:47] VITALS: BP 128/69; PULSE 69; RESP 16; TEMP 98
== END 2024-09-19 14:46 | disposition home or self-care (01) ==
LOC: EC 09:27
DX: K52.9 Noninfective gastroenteritis and colitis, unspecified (principal); F17.290 Nicotine dependence, other tobacco product, uncomplicated; Z88.0 Allergy status to penicillin
CPT/HCPCS: 36415; 80053; 83605; 83690; 85025; 81001; 81025; 99284; 96374; 96375; 96376 ×2; 96361; J2405; J1885; S0119

== ENCOUNTER 2025-03-23 08:31 | Emergency (ER) | payer OTHER ==
[2025-03-23 09:04] LABS: Basophils # (A) 0.03 10*3/uL (0.00-0.10); Basophils % (A) 0.5 %; Eosinophils # (A) 0.07 10*3/uL (0.04-0.35); Eosinophils % (A) 1.2 %; HCT 37.2 % (37.2-46.3); HGB 12.7 g/dL (12.0-15.0); Lymphocytes # (A) 2.29 10*3/uL (0.90-5.00); Lymphocytes % (A) 39.3 %; MCH 30.6 pg (27.0-32.0); MCHC 34.1 g/dL (32.0-37.0); MCV 89.6 fL (80.0-97.0); Mean Platelet Volume 9.9 fL (9.5-12.2); Monocytes % (A) 6.9 %; Neutrophils # (A) 3.02 10*3/uL (1.80-7.70); Neutrophils % (A) 51.8 %; Platelet Count 199 10*3/uL (140-440); RBC 4.15 10*6/uL (4.10-5.20); RDW 13.4 % (11.5-14.5); WBC 5.83 10*3/uL (4.50-10.00)
--- NOTE | 2025-03-23 09:08 | ED ---
ENT HPI - General Chief complaint: Dental/Oral Stated complaint: dental pain Time Seen by Provider: 03/23/25 08:42 Source: patient, RN notes reviewed Mode of arrival: ambulatory Limitations: no limitations - History of Present Illness Initial comments: This is a 30-year-old female who presents to the emergency department for neck pain. States over the last 5 days she has had pain in the left side of her neck. States that it goes behind the ear and down the jaw. She also has pain in her throat. Pain is worse when she tries to speak, swallow, or palpate the area. She wonders if she may have a dental abscess, however she denies any pain in the teeth itself. She went to urgent care 2 days ago and was given a steroid shot which was helpful. They did a strep test which was negative and she was told that nothing was wrong. However, states that symptoms are continuing to persist. She had a similar episode a few years ago that resolved on its own, however she is unsure what the ultimate cause was. Denies any fevers or chills. - Related Data Previous Rx's Medication Instructions Recorded Ketorolac [Toradol] 10 mg PO Q6HR PRN #15 tab 03/23/25 clindamycin HCL 300 mg PO QID 10 Days #40 capsule 03/23/25 Allergies Allergy/AdvReac Type Severity Reaction Status Date / Time amoxicillin Allergy Rash/Hives Verified 03/23/25 08:41 Penicillins Allergy Rash/Hives Verified 03/23/25 08:41 Review of Systems ROS Statement: Those systems with pertinent positive or pertinent negative responses have been documented in the HPI. ROS Other: All systems not noted in ROS Statement are negative. Past Medical History Past Medical History: No Reported History History of Any Multi-Drug Resistant Organisms: None Reported Past Surgical History: Ear Surgery, Joint Replacement Additional Past Surgical History / Comment(s): left ACL repair. eustachian tubes. Past Anesthesia/Blood Transfusion Reactions: No Reported Reaction Past Psychological History: Anxiety Smoking Status: Current every day smoker, Vaper Past Alcohol Use History: Occasional Past Drug Use History: None Reported - Past Family History Father Family Medical History: No Reported History General Exam Limitations: no limitations General appearance: alert, in no apparent distress Head exam: Present: atraumatic, normocephalic, normal inspection ENT exam: Present: other (Posterior pharyngeal erythema with tonsillar hype rtrophy. No exudates. Multiple dental caries.) Neck exam: Present: other (Tenderness to palpation over the left side of the neck, particularly over the sternocleidomastoid junction.) Respiratory exam: Present: normal lung sounds bilaterally. Absent: respiratory distress, wheezes, rales, rhonchi, stridor Cardiovascular Exam: Present: regular rate, normal rhythm Neurological exam: Present: alert, oriented X3, CN II-XII intact Psychiatric exam: Present: normal affect, normal mood Skin exam: Present: warm, dry, intact, normal color. Absent: rash Course Vital Signs 03/23/25 03/23/25 08:39 11:10 Temperature 97.9 F 98.1 F Pulse Rate 57 L 64 Respiratory 18 20 Rate Blood Pressure 106/63 111/77 O2 Sat by Pulse 98 99 Oximetry Medical Decision Making - Medical Decision Making This is a 30-year-old female who presents to the emergency department for neck pain. Was pt. sent in by a medical professional or institution? @ -No Did you speak to anyone other than the patient for history? @ -No Did you review nursing and triage notes? @ -Yes, and I agree, it is accurate with regards to the patient's symptoms. Were old charts reviewed? @ -No Differential Diagnosis? @ -Differential Neck Pain: Fracture, dislocation, contusion, strain, DDD, disc herniation, this is not meant to be an all-inclusive list. EKG interpreted by me (3pts min.)? @ -Not obtained X-rays interpreted by me (1pt min.)? @ -Not obtained CT interpreted by me (1pt min.)? @ -CT scan of the soft tissue neck obtained. My interpretation identifies no abscess formation. U/S interpreted by me (1pt. min.)? @ -Not obtained What testing was considered but not performed? (CT, X-rays, U/S, labs)? Why? @ -None What meds were considered but not given? Why? @ -None Did you discuss the management of the patient with other professionals? @ -No Did you reconcile home meds? @ -No Was smoking cessation discussed for >3mins.? @ -I discussed smoking cessation for greater than 3 minutes. The risk of smoking were discussed with the patient including but not limited to risks of cancer, stroke, coronary artery disease and COPD. Also discussed with patient were multiple methods of quitting smoking. Lastly we discussed the financial cost of smoking. Was critical care preformed (if so, how long)? @ -No Were there social determinants of health that impacted care today? How? (Homelessness, low income, unemployed, alcoholism, drug addiction, transportation, low edu. Level, literacy, decrease access to med. care, alf, rehab)? @ -No Was there de-escalation of care discussed even if they declined? (Discuss DNR or withdrawal of care, Hospice)? @ -No What co-morbidities impacted this encounter? (DM, HTN, Smoking, COPD, CAD, Cancer, CVA, Hep., AIDS, mental health diagnosis, sleep apnea, morbid obesity)? @ -Smoking Was patient admitted / discharged? @ -Discharged. Lab work unremarkable. Rapid strep test negative. Heterophile negative. CT scan of the soft tissue neck obtained revealing no acute process. She did have several dental caries and tenderness to the left side of her neck on exam. She could have radicular pain from a cavity or dental infection without abscess formation. Advised that we can treat her as such and clindamycin was prescribed along with Toradol for pain control. Advised she follow-up with her PCP for reevaluation. Patient discharged home in stable condition. Case discussed with ED attending Dr. Tipton. Return precautions reviewed in depth, the patient is instructed to return to the emergency department with any new, worsening, or concerning symptoms. Patient verbalized understanding. Undiagnosed new problem with uncertain prognosis? @ -None Drug Therapy requiring intensive monitoring for toxicity (Heparin, Nitro, Insulin, Cardizem)? @ -None Were any procedures done? @ -None Diagnosis/symptom? @ -Left-sided neck pain Acute, or Chronic, or Acute on Chronic? @ -Acute Uncomplicated (without systemic symptoms) or Complicated (systemic symptoms)? @ -Uncomplicated Side effects of treatment? @ -None Exacerbation, Progression, or Severe Exacerbation] @ -Not applicable Poses a threat to life or bodily function? @ -No - Lab Data Result diagrams: 03/23/25 08:59 03/23/25 08:59 Lab Results 03/23/25 03/23/25 03/23/25 Range/Units 08:54 08:59 08:59 WBC 5.83 (4.50-10.00) 10*3/uL RBC 4.15 (4.10-5.20) 10*6/uL Hgb 12.7 (12.0-15.0) g/dL Hct 37.2 (37.2-46.3) % MCV 89.6 (80.0-97.0) fL MCH 30.6 (27.0-32.0) pg MCHC 34.1 (32.0-37.0) g/dL Plt Count 199 (140-440) 10*3/uL MPV 9.9 (9.5-12.2) fL Immature Gran % (Auto) 0.3 % Neutrophils % 51.8 % Lymphocytes % 39.3 % Monocytes % 6.9 % Eosinophils % 1.2 % Basophils % 0.5 % Immature Gran # 0.02 (0.00-0.04) 10*3/uL Neutrophils # 3.02 (1.80-7.70) 10*3/uL Lymphocytes # 2.29 (0.90-5.00) 10*3/uL Monocytes # 0.40 (0.20-1.00) 10*3/uL Eosinophils # 0.07 (0.04-0.35) 10*3/uL Basophils # 0.03 (0.00-0.10) 10*3/uL Sodium 138 (137-145) mmol/L Potassium 4.0 (3.5-5.1) mmol/L Chloride 104 (98-107) mmol/L Carbon Dioxide 24 (22-30) mmol/L Anion Gap 10 mmol/L BUN 11 (7-17) mg/dL Creatinine 0.55 (0.52-1.04) mg/dL Est GFR (CKD-EPI)AfAm >90 (>60 ml/min/1.73 sqM) Est GFR (CKD-EPI)NonAf >90 (>60 ml/min/1.73 sqM) Glucose 96 (74-99) mg/dL Plasma Lactic Acid Riley (0.7-2.0) mmol/L Calcium 9.1 (8.4-10.2) mg/dL Total Bilirubin 0.8 (0.2-1.3) mg/dL AST 36 (14-36) U/L ALT 28 (4-34) U/L Alkaline Phosphatase 78 (38-126) U/L C-Reactive Protein <0.5 (<1.0) mg/dL Total Protein 7.5 (6.3-8.2) g/dL Albumin 4.5 (3.5-5.0) g/dL Amylase 54 (30-110) U/L Lipase 45 (23-300) U/L HCG, Qual Not Detected Heterophile Antibody (Negative) Group A Strep (PCR) NOT DETECTED (Not Detectd) 03/23/25 03/23/25 Range/Units 08:59 08:59 WBC (4.50-10.00) 10*3/uL RBC (4.10-5.20) 10*6/uL Hgb (12.0-15.0) g/dL Hct (37.2-46.3) % MCV (80.0-97.0) fL MCH (27.0-32.0) pg MCHC (32.0-37.0) g/dL Plt Count (140-440) 10*3/uL MPV (9.5-12.2) fL Immature Gran % (Auto) % Neutrophils % % Lymphocytes % % Monocytes % % Eosinophils % % Basophils % % Immature Gran # (0.00-0.04) 10*3/uL Neutrophils # (1.80-7.70) 10*3/uL Lymphocytes # (0.90-5.00) 10*3/uL Monocytes # (0.20-1.00) 10*3/uL Eosinophils # (0.04-0.35) 10*3/uL Basophils # (0.00-0.10) 10*3/uL Sodium (137-145) mmol/L Potassium (3.5-5.1) mmol/L Chloride (98-107) mmol/L Carbon Dioxide (22-30) mmol/L Anion Gap mmol/L BUN (7-17) mg/dL Creatinine (0.52-1.04) mg/dL Est GFR (CKD-EPI)AfAm (>60 ml/min/1.73 sqM) Est GFR (CKD-EPI)NonAf (>60 ml/min/1.73 sqM) Glucose (74-99) mg/dL Plasma Lactic Acid Riley 1.0 (0.7-2.0) mmol/L Calcium (8.4-10.2) mg/dL Total Bilirubin (0.2-1.3) mg/dL AST (14-36) U/L ALT (4-34) U/L Alkaline Phosphatase (38-126) U/L C-Reactive Protein (<1.0) mg/dL Total Protein (6.3-8.2) g/dL Albumin (3.5-5.0) g/dL Amylase (30-110) U/L Lipase (23-300) U/L HCG, Qual Heterophile Antibody Negative (Negative) Group A Strep (PCR) (Not Detectd) - Radiology Data Radiology results: report reviewed, image reviewed Disposition Clinical Impression: Neck pain, Nicotine dependence, Dental caries Disposition: HOME SELF-CARE Instructions (If sedation given, give patient instructions): Neck Pain (ED) Additional Instructions: Return to the emergency department with any new, worsening, or concerning symptoms. Take the antibiotic as prescribed for 10 days. Take the Toradol with Tylenol as needed for pain relief. If you choose to take the Toradol, do not take any other anti-inflammatories such as ibuprofen, take one or the other. Follow up with your primary care provider in 1-2 days. Prescriptions: clindamycin HCL 300 mg PO QID 10 Days #40 capsule Ketorolac [Toradol] 10 mg PO Q6HR PRN #15 tab PRN Reason: Pain Is patient prescribed a controlled substance at d/c from ED?: No Referrals: Nonstaff,Physician [Primary Care Provider] - 1-2 days Time of Disposition: 10:59
[2025-03-23] MEDS: DEXAMETHASONE SOD PHOSPHATE 10 MG/ML 1 ML VIAL IVP STA (09:30)
[2025-03-23] MEDS: KETOROLAC 15 MG/ML 1 ML VIAL IVP STA (09:31)
[2025-03-23] MEDS: ONDANSETRON ODT 4 MG TAB PO STA (09:36)
[2025-03-23 09:58] LABS: HCG,Qualitative Serum Not Detected
[2025-03-23 09:59] LABS: ALT 28 U/L (4-34); AST 36 U/L (14-36); African American GFR (CKD) >90 (>60 ml/min/1.73 sqM); Albumin 4.5 g/dL (3.5-5.0); Alkaline Phosphatase 78 U/L (38-126); Amylase 54 U/L (30-110); Anion Gap 10 mmol/L; Blood Urea Nitrogen 11 mg/dL (7-17); Calcium 9.1 mg/dL (8.4-10.2); Carbon Dioxide 24 mmol/L (22-30); Chloride 104 mmol/L (98-107); Glucose 96 mg/dL (74-99); Lipase 45 U/L (23-300); Non-African American GFR(CKD) >90 (>60 ml/min/1.73 sqM); Sodium 138 mmol/L (137-145); Total Bilirubin 0.8 mg/dL (0.2-1.3); Total Protein 7.5 g/dL (6.3-8.2)
--- NOTE | 2025-03-23 10:05 | CT ---
EXAMINATION TYPE: CT soft tissue neck w con DATE OF EXAM: 03/23/2025 9:54 AM COMPARISON: None. CLINICAL INDICATION: Female, 30 years old with history of Left sided neck pain, Left side toothache p ossible abscess. TECHNIQUE: Axial images at 3 mm thick sections. Reconstructed images in the coronal plane and sagitt al plane are reviewed. Contrast used:100 ml mL of Isovue 300 with IV Contrast, (none if empty) Oral contrast used: (none if empty) CT DLP: 181.1 mGycm, Automated exposure control for dose reduction was used. FINDINGS: Limited CT sections are obtained the lung apices. The lung apices appear clear. CT neck: The torus tubarius and fossa of Rosenmuller are normal. Medical Concierge spaces are normal. Smal l retention cyst within the maxillary sinuses. Parotid glands appear normal and symmetrical. Submandibular glands, are normal. Parapharyngeal spac es are normal. Submental lymph nodes present. A few additional posterior triangle lymph nodes are present. Enlarged lymphadenopathy is not identified. The hypopharynx appears within normal limits. Epiglottis appears normal. Vocal cord level appear symmetrical. Thyroid as visualized is normal. Osseous structures are normal. No suspicious erosions to suggest osteomyelitis or dental abscess iden tified. Prevertebral space is normal. IMPRESSION: 1. No suspicious abnormality for dental abscess. [facility], , 03/23/2025 10:02 AM
[2025-03-23 10:38] LABS: C Reactive Protein <0.5 mg/dL (<1.0)
[2025-03-23] MEDS: ACET/COD 300 MG/30 MG STARTER PACK 6 TAB BTL PO STA (11:05)
[2025-03-23] MEDS: ONDANSETRON 4 MG ODT STARTER PACK 2 TAB BTL PO STA (11:05)
[2025-03-23 11:11] VITALS: BP 111/77; PULSE 64; RESP 20; TEMP 98.1
== END 2025-03-23 11:11 | disposition home or self-care (01) ==
LOC: EC 08:31
DX: K02.9 Dental caries, unspecified (principal); M54.2 Cervicalgia; F17.290 Nicotine dependence, other tobacco product, uncomplicated; Z88.0 Allergy status to penicillin
CPT/HCPCS: 36415; 87651; 80053; 82150; 83605; 83690; 85025; 86140; 86308; 84703; 70491; 99283; 96374; 96375; J1100; J1885; S0119; Q9967